=== PATIENT | female | born 1945 | race Caucasian/White ===

== ENCOUNTER 2017-09-06 17:20 | Emergency (ER) | payer MEDICARE ==
[2017-09-06 17:51] VITALS: BP 105/44
--- NOTE | 2017-09-06 18:30 | RAD ---
INDICATION: Left hand injury 3 days ago. Pain. COMPARISON: None TECHNIQUE: AP, lateral, and oblique views were obtained. FINDINGS: There is mild bony demineralization. There is moderate to advanced DIP and PIP osteoarthritis with narrowing, sclerosis, and hypertrophic bony change. There is minor osteoarthritis but the base of the thumb. There is no acute bony change. There is prominent soft tissue swelling over the dorsum of the hand IMPRESSION: MODERATE TO ADVANCED OSTEOARTHRITIS. DIFFUSE SOFT TISSUE SWELLING DORSUM OF HAND.
--- NOTE | 2017-09-06 18:31 | RAD ---
INDICATION: Left wrist pain COMPARISON: None TECHNIQUE: AP, lateral, and oblique views were obtained. FINDINGS: There is no acute bony change. There is mild osteoarthritis about the first CMC articulation. There is minor osteoarthritis about the radiocarpal joint. No additional findings IMPRESSION: MILD OSTEOARTHRITIC CHANGES.
--- NOTE | 2017-09-06 18:54 | UC ---
Nikolas Garcia Tecjoon, scribed for Sean Hodge MD on 09/06/17 at 1808 . Upper Extremity HPI - HPI Summary HPI Summary: This patient is a 72 year old female [place] 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 3 days ago. Patient states she was seen by her PCP that day and received an xray, which was negative for fracture. Patient states pain has persisted and is here for re-evaluation. Patients left wrist is swollen and with significant bruising. The pain is described as aching The pain is rated 6/10 in severity. Symptoms aggravated by movement. Symptoms alleviated by ice, inactivity. 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 - History of Current Complaint Chief Complaint: UCUpperExtremity Stated Complaint: WRIST INJURY Time Seen by Provider: 09/06/17 17:56 Hx Obtained From: Patient Onset/Duration: Sudden Onset, Lasting Days - 3, Still Present Severity Initially: Moderate Severity Currently: Moderate Pain Intensity: 6 Pain Scale Used: 0-10 Numeric Location Of Pain: Is Discrete @ - left wrist Character: Aching Aggravating Factor(s): Movement Alleviating Factor(s): Ice, Rest Associated Signs And Symptoms: Positive: Swelling, Bruising - Allergies/Home Medications Allergies/Adverse Reactions: Allergies Allergy/AdvReac Type Severity Reaction Status Date / Time Paroxetine [From Paxil] AdvReac cold/cough Verified 09/06/17 17:50 symptoms Home Medications: Home Medications Naproxen Sodium-Diphenhydramin [Aleve PM 220-25 mg] 2 tab PO PRN 09/06/17 [ History] PMH/Surg Hx/FS Hx/Imm Hx Previously Healthy: No Endocrine History: Diabetes Cardiovascular History: Hypertension, Other - hyperlipidemia Other Cardiovascular History: . Respiratory History: COPD - Surgical History Surgical History: Yes Surgery Procedure, Year, and Place: [place]/ lazy eye right as kid - Family History Known Family History: Positive: Hypertension, Diabetes - Social History Lives: With Family Alcohol Use: None Substance Use Type: None Smoking Status (MU): Heavy Every Day Tobacco Smoker Type: Cigarettes Amount Used/How Often: 1 1/2 ppd Length of Time of Smoking/Using Tobacco: 40+ years Have You Smoked in the Last Year: Yes - Immunization History Most Recent Influenza Vaccination: 2014 Most Recent Tetanus Shot: unk Most Recent Pneumonia Vaccination: few years ago Review of Systems Constitutional: Negative - fever Musculoskeletal: Other: - left wrist swelling and bruising, left wrist pain All Other Systems Reviewed And Are Negative: Yes Physical Exam Triage Information Reviewed: Yes Vital Signs: Initial Vital Signs Temp 99.8 F 09/06/17 17:41 Pulse 107 09/06/17 17:41 Resp 20 09/06/17 17:41 BP 105/44 09/06/17 17:41 Pulse Ox 90 09/06/17 17:41 - Additional Comments General: well-appearing, no pain distress Skin: warm, color reflects adequate perfusion, dry Head: normal Eyes: EOMI, RIGOBERTO ENT: normal Neck: supple, nontender Respiratory: CTA, breath sounds present Cardiovascular: RRR Abdomen: soft, nontender Bowel: present Extremities: Left hand swollen. Tender in distal radius and left metacarpal. Decreased ROM. Musculoskeletal: normal, strength/ROM intact Neurological: normal, sensory/motor intact, A&O x3 Psychological: affect/mood appropriate Diagnostics - Radiology Wrist XR Xray Interpretation: Positive (See Comments) - IMPRESSION: MILD OSTEOARTHRITIC CHANGES. physician has reviewed this radiology report. Radiology Interpretation Completed By: Radiologist Hand XR Xray Interpretation: Positive (See Comments) - IMPRESSION: MODERATE TO ADVANCED OSTEOARTHRITIS. DIFFUSE SOFT TISSUE SWELLING DORSUM OF HAND. physician has reviewed this radiology report. Radiology Interpretation Completed By: Radiologist Upper Extremity Course/Dx - Course Course Of Treatment: DISCUSSED RESULTS WITH PATIENT. - Differential Dx/Diagnosis Provider Diagnoses: LEFT WRIST AND HAND SPRAIN Discharge - Discharge Plan Condition: Stable Disposition: HOME Patient Education Materials: Wrist Injury (ED), Splint Care (ED), Hand Sprain ( ED) Referrals: Tia Henriquez MD [Primary Care Provider] - Additional Instructions: FOLLOW UP WITH YOUR DOCTOR. GET RECHECKED FOR ANY WORSENING OF YOUR CONDITION OR QUESTIONS OR CONCERNS. The documentation as recorded by the Nikolas bolivar Tecjoon accurately reflects the service I personally performed and the decisions made by me, Sena Hodge MD.
== END 2017-09-06 19:05 | disposition home or self-care (01) ==
LOC: UCEAST 17:20
DX: S63.92XA Sprain of unspecified part of left wrist and hand, initial encounter (principal); E11.9 Type 2 diabetes mellitus without complications; I10 Essential (primary) hypertension; M19.032 Primary osteoarthritis, left wrist; M19.042 Primary osteoarthritis, left hand; F17.210 Nicotine dependence, cigarettes, uncomplicated; Z88.8 Allergy status to other drugs, medicaments and biological substances; W19.XXXA Unspecified fall, initial encounter; Y92.9 Unspecified place or not applicable
CPT/HCPCS: 99213; G0463

== ENCOUNTER 2017-11-21 15:13 | Inpatient (IN) | payer MEDICARE ==
[2017-11-21 16:36] LABS: ABS Basophils 0 10^3/ul (0-0.2); ABS Eosinophils 0.1 10^3/ul (0-0.6); ABS Lymphocytes 0.9 10^3/ul (1.0-4.8); ABS Monocytes 0.5 10^3/ul (0-0.8); ABS Neutrophils 5.5 10^3/ul (1.5-7.7); ABS Nucleated RBC 0 10^3/ul; Eosinophil % 1.2 % (0-6); Hematocrit 45 % (35-47); Hemoglobin 15.2 g/dl (12.0-16.0); Mean Corpuscular HGB Conc 33 g/dl (31-36); Mean Corpuscular Hemoglobin 32 pg (27-31); Mean Corpuscular Volume 97 fL (80-97); Mean Platelet Volume 8.6 um3 (7.4-10.4); Nucleated Red Blood Cells % 0.1; Platelet Count 130 10^3/ul (150-450); Red Blood Count 4.68 10^6/ul (4.0-5.4); Red Cell Distribution Width 15 % (10.5-15); White Blood Count 7.1 10^3/ul (3.5-10.8)
[2017-11-21 16:46] LABS: INR 0.93 (0.77-1.02)
[2017-11-21] MEDS ORDERED: Albuterol/Ipratropium NEB.SOL* Albuterol 2.5 MG/Ipratropium 0.5 MG 3 ML INH ONE ×2 (16:49→18:01)
[2017-11-21 16:55] LABS: EGFR Non-African American 30.7 (>60)
--- NOTE | 2017-11-21 17:03 | RAD ---
INDICATION: Hypoxia COMPARISON: Most recent comparison chest x-ray is dated February 07, 2016 TECHNIQUE: Single AP portable view of the chest was obtained. FINDINGS: Image quality is compromised due to the relative inferiority of a portable chest x-ray. Similar the prior chest x-ray there is a mild degree of cardiomegaly. Faint calcification is seen overlying the arch of the aorta. The pulmonary vasculature is mildly engorged and indistinct. There is blunting of the left costophrenic angle. There is no lobar consolidation. Visualized bones are normal for the patient's age. IMPRESSION: In the correct clinical setting chest x-ray findings could be compatible with mild cardiogenic pulmonary edema similar in appearance to the prior chest x-ray.
[2017-11-21] MEDS ORDERED: methylPREDNISolone 125 MG* 2 ML VIAL IV ONE (17:50)
--- NOTE | 2017-11-21 18:40 | ED ---
Chente Garcia Stephanie, scribed for Sean Hodge MD on 11/21/17 at 1622 . Complex/Multi-Sys Presentation - HPI Summary HPI Summary: The pt is a 72 y/o F presenting to the ED with c/o weakness that began today at 08:00. The pt states she was standing when her legs came out from under her and she fell to the floor at 11:30 today. Symptoms include LE numbness bilaterally, tearing pain in her L leg, productive cough and increased tiredness. The pt denies CP and increased HR. She states her legs are not currently numb. Per daughter, the pt was dozing in and out of sleep throughout the day and fell asleep while on the toilet last night. - History Of Current Complaint Chief Complaint: EDWeakness Time Seen by Provider: 11/21/17 15:55 Hx Obtained From: Patient Onset/Duration: Gradual Onset, Lasting Days - 1, Still Present Timing: Constant Severity Currently: Mild Associated Signs And Symptoms: Positive: Weakness, Cough, Other - LE numbness, tearing pain over L LE, increased tiredness - Allergies/Home Medications Allergies/Adverse Reactions: Allergies Allergy/AdvReac Type Severity Reaction Status Date / Time paroxetine [From Paxil] Allergy Runny Nose Verified 11/21/17 15:22 Home Medications: Home Medications Atorvastatin* [Lipitor*] 20 mg PO DAILY 11/21/17 [History Confirmed 11/21/17] Insulin Aspart Prot/Insuln Asp [Novolog Mix 70/30 Prefill] 60 units SUBCUT BID AC 11/21/17 [History Confirmed 11/21/17] Lisinopril TAB* [Prinivil TAB*] 5 mg PO DAILY 11/21/17 [History Confirmed ] Pregabalin CAP(*) [Lyrica CAP(*)] 150 mg PO TID 11/21/17 [History Confirmed ] clonazePAM TAB(*) [KlonoPIN TAB(*)] 0.5 mg PO QID PRN 11/21/17 [History Confirmed 11/21/17] PMH/Surg Hx/FS Hx/Imm Hx Endocrine/Hematology History: Reports: Hx Diabetes Cardiovascular History: Reports: Hx Hypertension Respiratory History: Reports: Hx Chronic Obstructive Pulmonary Disease (COPD) - emphasema Comment Only: Other Respiratory Problems/Disorders - sob with exertion GI History: Reports: Other GI Disorders - stomach discomfort Musculoskeletal History: Reports: Other Musculoskeletal History - arthritis Sensory History: Reports: Hx Contacts or Glasses Opthamlomology History: Reports: Hx Contacts or Glasses Psychiatric History: Reports: Hx Anxiety - Cancer History Hx Chemotherapy: No Hx Radiation Therapy: No - Surgical History Surgery Procedure, Year, and Place: [place]/ lazy eye right as kid Infectious Disease History: No Infectious Disease History: Denies: Traveled Outside the [place] in Last 30 Days - Family History Known Family History: Positive: Hypertension, Diabetes - Social History Occupation: Retired Lives: Alone Alcohol Use: None Hx Substance Use: No Substance Use Type: Reports: None Hx Tobacco Use: Yes Smoking Status (MU): Heavy Every Day Tobacco Smoker Type: Cigarettes Amount Used/How Often: 1 1/2 ppd Length of Time of Smoking/Using Tobacco: 40+ years Have You Smoked in the Last Year: Yes Review of Systems Positive: Other - increased tiredness. Negative: Fever Positive: Other - Negative: increased HR. Negative: Chest Pain Positive: Cough Positive: Other - tearing pain in L LE Positive: Weakness, Numbness - bilateral LE All Other Systems Reviewed And Are Negative: Yes Physical Exam - Summary Physical Exam Summary: General: well-appearing, no pain distress Skin: warm, color reflects adequate perfusion, dry Head: normal Eyes: EOMI, RIGOBERTO ENT: normal Neck: supple, nontender Respiratory: CTA, breath sounds present, loose cough Cardiovascular: RRR Abdomen: soft, nontender Bowel: present Musculoskeletal: strength/ROM intact, bilateral pedal edema Neurological: normal, sensory/motor intact, A&O x3, no sensation or neurological deficits Psychological: affect/mood appropriate Triage Information Reviewed: Yes Vital Signs On Initial Exam: Initial Vitals Temp Pulse Resp BP Pulse Ox 96.8 F 80 20 120/75 89 11/21/17 15:17 11/21/17 15:17 11/21/17 15:17 11/21/17 15:17 11/21/17 15:17 Vital Signs Reviewed: Yes Diagnostics - Vital Signs Vital Signs Temp Pulse Resp BP Pulse Ox 11/21/17 15:17 96.8 F 80 20 120/75 89 - Laboratory Lab Results: Lab Results 11/21/17 11/21/17 11/21/17 Range/Units 16:23 16:23 16:23 WBC 7.1 (3.5-10.8) 10^3/ul RBC 4.68 (4.0-5.4) 10^6/ul Hgb 15.2 (12.0-16.0) g/dl Hct 45 (35-47) % MCV 97 (80-97) fL MCH 32 H (27-31) pg MCHC 33 (31-36) g/dl RDW 15 (10.5-15) % Plt Count 130 L (150-450) 10^3/ul MPV 8.6 (7.4-10.4) um3 Neut % (Auto) 77.9 (38-83) % Lymph % (Auto) 13.0 L (25-47) % Bureau % (Auto) 7.6 H (0-7) % Eos % (Auto) 1.2 (0-6) % Baso % (Auto) 0.3 (0-2) % Absolute Neuts (auto) 5.5 (1.5-7.7) 10^3/ul Absolute Lymphs (auto) 0.9 L (1.0-4.8) 10^3/ul Absolute Monos (auto) 0.5 (0-0.8) 10^3/ul Absolute Eos (auto) 0.1 (0-0.6) 10^3/ul Absolute Basos (auto) 0 (0-0.2) 10^3/ul Absolute Nucleated RBC 0 10^3/ul Nucleated RBC % 0.1 INR (Anticoag Therapy) 0.93 (0.77-1.02) APTT 30.4 (26.0-36.3) seconds D-Dimer, Quantitative 350 H (Less Than 230) ng/mL VBG pH (7.33-7.43) VBG pCO2 (41-51) mmHg VBG pO2 (35-45) mmHg VBG HCO3 (24-28) mmol/L VBG O2 Saturation (70-80) % VBG Base Excess (0-4) Sodium 142 (139-145) mmol/L Potassium 5.5 H (3.5-5.0) mmol/L Chloride 102 (101-111) mmol/L Carbon Dioxide 30 (22-32) mmol/L Anion Gap 10 (2-11) mmol/L BUN 33 H (6-24) mg/dL Creatinine 1.64 H (0.51-0.95) mg/dL Est GFR ( Amer) 39.5 (>60) Est GFR (Non-Af Amer) 30.7 (>60) BUN/Creatinine Ratio 20.1 H (8-20) Glucose 57 L (70-100) mg/dL POC Glucose (mg/dL) (70-100) mg/dL Lactic Acid (0.5-2.0) mmol/L Calcium 8.8 (8.6-10.3) mg/dL Magnesium 1.8 L (1.9-2.7) mg/dL Total Bilirubin 0.60 (0.2-1.0) mg/dL AST 14 (13-39) U/L ALT 10 (7-52) U/L Alkaline Phosphatase 91 (34-104) U/L Ammonia (16-53) mol/L Total Creatine Kinase 47 (10-223) U/L CK-MB (CK-2) 1.8 (0.6-6.3) ng/mL Troponin I 0.00 (<0.04) ng/mL C-Reactive Protein 2.11 (< 5.00) mg/L B-Natriuretic Peptide ( - 100) pg/mL Total Protein 7.4 (6.4-8.9) g/dL Albumin 4.0 (3.2-5.2) g/dL Globulin 3.4 (2-4) g/dL Albumin/Globulin Ratio 1.2 (1-3) Lipase 19 (11.0-82.0) U/L TSH 1.49 (0.34-5.60) mcIU/mL Salicylates < 2.50 (<30) mg/dL Acetaminophen < 15 mcg/mL Serum Alcohol < 10 (<10) mg/dL 11/21/17 11/21/17 11/21/17 Range/Units 16:23 16:23 16:23 WBC (3.5-10.8) 10^3/ul RBC (4.0-5.4) 10^6/ul Hgb (12.0-16.0) g/dl Hct (35-47) % MCV (80-97) fL MCH (27-31) pg MCHC (31-36) g/dl RDW (10.5-15) % Plt Count (150-450) 10^3/ul MPV (7.4-10.4) um3 Neut % (Auto) (38-83) % Lymph % (Auto) (25-47) % Bureau % (Auto) (0-7) % Eos % (Auto) (0-6) % Baso % (Auto) (0-2) % Absolute Neuts (auto) (1.5-7.7) 10^3/ul Absolute Lymphs (auto) (1.0-4.8) 10^3/ul Absolute Monos (auto) (0-0.8) 10^3/ul Absolute Eos (auto) (0-0.6) 10^3/ul Absolute Basos (auto) (0-0.2) 10^3/ul Absolute Nucleated RBC 10^3/ul Nucleated RBC % INR (Anticoag Therapy) (0.77-1.02) APTT (26.0-36.3) seconds D-Dimer, Quantitative (Less Than 230) ng/mL VBG pH 7.30 L (7.33-7.43) VBG pCO2 70 H (41-51) mmHg VBG pO2 21 L (35-45) mmHg VBG HCO3 27.3 (24-28) mmol/L VBG O2 Saturation 41.8 L (70-80) % VBG Base Excess 5.3 H (0-4) Sodium (139-145) mmol/L Potassium (3.5-5.0) mmol/L Chloride (101-111) mmol/L Carbon Dioxide (22-32) mmol/L Anion Gap (2-11) mmol/L BUN (6-24) mg/dL Creatinine (0.51-0.95) mg/dL Est GFR ( Amer) (>60) Est GFR (Non-Af Amer) (>60) BUN/Creatinine Ratio (8-20) Glucose (70-100) mg/dL POC Glucose (mg/dL) (70-100) mg/dL Lactic Acid 1.3 (0.5-2.0) mmol/L Calcium (8.6-10.3) mg/dL Magnesium (1.9-2.7) mg/dL Total Bilirubin (0.2-1.0) mg/dL AST (13-39) U/L ALT (7-52) U/L Alkaline Phosphatase (34-104) U/L Ammonia 31 (16-53) mol/L Total Creatine Kinase (10-223) U/L CK-MB (CK-2) (0.6-6.3) ng/mL Troponin I (<0.04) ng/mL C-Reactive Protein (< 5.00) mg/L B-Natriuretic Peptide 16 ( - 100) pg/mL Total Protein (6.4-8.9) g/dL Albumin (3.2-5.2) g/dL Globulin (2-4) g/dL Albumin/Globulin Ratio (1-3) Lipase (11.0-82.0) U/L TSH (0.34-5.60) mcIU/mL Salicylates (<30) mg/dL Acetaminophen mcg/mL Serum Alcohol (<10) mg/dL 11/21/17 Range/Units 17:48 WBC (3.5-10.8) 10^3/ul RBC (4.0-5.4) 10^6/ul Hgb (12.0-16.0) g/dl Hct (35-47) % MCV (80-97) fL MCH (27-31) pg MCHC (31-36) g/dl RDW (10.5-15) % Plt Count (150-450) 10^3/ul MPV (7.4-10.4) um3 Neut % (Auto) (38-83) % Lymph % (Auto) (25-47) % Bureau % (Auto) (0-7) % Eos % (Auto) (0-6) % Baso % (Auto) (0-2) % Absolute Neuts (auto) (1.5-7.7) 10^3/ul Absolute Lymphs (auto) (1.0-4.8) 10^3/ul Absolute Monos (auto) (0-0.8) 10^3/ul Absolute Eos (auto) (0-0.6) 10^3/ul Absolute Basos (auto) (0-0.2) 10^3/ul Absolute Nucleated RBC 10^3/ul Nucleated RBC % INR (Anticoag Therapy) (0.77-1.02) APTT (26.0-36.3) seconds D-Dimer, Quantitative (Less Than 230) ng/mL VBG pH (7.33-7.43) VBG pCO2 (41-51) mmHg VBG pO2 (35-45) mmHg VBG HCO3 (24-28) mmol/L VBG O2 Saturation (70-80) % VBG Base Excess (0-4) Sodium (139-145) mmol/L Potassium (3.5-5.0) mmol/L Chloride (101-111) mmol/L Carbon Dioxide (22-32) mmol/L Anion Gap (2-11) mmol/L BUN (6-24) mg/dL Creatinine (0.51-0.95) mg/dL Est GFR ( Amer) (>60) Est GFR (Non-Af Amer) (>60) BUN/Creatinine Ratio (8-20) Glucose (70-100) mg/dL POC Glucose (mg/dL) 125 H (70-100) mg/dL Lactic Acid (0.5-2.0) mmol/L Calcium (8.6-10.3) mg/dL Magnesium (1.9-2.7) mg/dL Total Bilirubin (0.2-1.0) mg/dL AST (13-39) U/L ALT (7-52) U/L Alkaline Phosphatase (34-104) U/L Ammonia (16-53) mol/L Total Creatine Kinase (10-223) U/L CK-MB (CK-2) (0.6-6.3) ng/mL Troponin I (<0.04) ng/mL C-Reactive Protein (< 5.00) mg/L B-Natriuretic Peptide ( - 100) pg/mL Total Protein (6.4-8.9) g/dL Albumin (3.2-5.2) g/dL Globulin (2-4) g/dL Albumin/Globulin Ratio (1-3) Lipase (11.0-82.0) U/L TSH (0.34-5.60) mcIU/mL Salicylates (<30) mg/dL Acetaminophen mcg/mL Serum Alcohol (<10) mg/dL Result Diagrams: 11/21/17 16:23 11/21/17 16:23 Lab Statement: Any lab studies that have been ordered have been reviewed, and results considered in the medical decision making process. - Radiology CXR Xray Interpretation: Positive (See Comments) Radiology Interpretation Completed By: Radiologist - In the correct clinical setting chest x-ray findings could be compatible with mild cardiogenic pulmonary edema similar in appearance to the prior chest x-ray. ED physician has reviewed this report. - EKG 16:28 Cardiac Rate: NL EKG Rhythm: Sinus Rhythm - [address] Segment: Normal Ectopy: None Re-Evaluation - Re-Evaluation First Eval Re-Evaluation Time: 18:01 Change: Unchanged - The pt is still mildly SOB. ED physician discussed plans of admission with the pt. The pt understands and agrees with the plan of admission. Complex Multi-Symp Course/Dx Course Of Treatment: DISCUSSED RESULTS WITH PATIENT AND FAMILY. ADMIT HOSPITALIST. CRITICAL CARE TIME LESS THAN 30 MINUTES. - Diagnoses Provider Diagnoses: Weakness, Hypoxia - Physician Notifications Discussed Care Of Patient With: Nils Staton Time Discussed With Above Provider: 17:46 Instructed by Provider To: Admit As Inpatient Discharge - Sign-Out/Discharge Documenting (check all that apply): Discharge - Discharge Plan Condition: Stable Disposition: HOME Referrals: Tia Henriquez MD [Primary Care Provider] - - Billing Disposition and Condition Condition: STABLE Disposition: HOME The documentation as recorded by the Chente bolivar Stephanie accurately reflects the service I personally performed and the decisions made by me, Sean Hodge MD.
[2017-11-21] MEDS ORDERED: Dextrose 50% Syringe 50 ML* 25 GM/50 ML SYRINGE IV PUSH PRN (18:48)
[2017-11-21] MEDS ORDERED: Albuterol/Ipratropium NEB.SOL* Albuterol 2.5 MG/Ipratropium 0.5 MG 3 ML INH PRN (18:50)
[2017-11-21] MEDS ORDERED: Magnesium Sulfate 2 GM IV* 2 GM/50 ML BAG IVPB ONE (18:54)
[2017-11-21] MEDS ORDERED: Sodium Polystyrene ORAL.SOL* 15 GM/60 ML BTL PO ONE (18:55)
[2017-11-21] MEDS ORDERED: Spiriva Inhaler DEVICE* 1 EACH DEVICE INH ONE (19:00)
[2017-11-21] MEDS ORDERED: cefTRIAXone(*) 1 GM in NS 0.9% 50 ML* 50 ML IVPB SCH (19:02)
[2017-11-21] MEDS: Mometasone/Formoter 200/5 MDI INH SCH (19:19)
[2017-11-21] MEDS: Albuterol/Ipratropium NEB.SOL* Albuterol 2.5 MG/Ipratropium 0.5 MG 3 ML INH SCH (19:19)
[2017-11-21] MEDS: Tiotropium CAP.INH* CAP.INH/18 MCG (USE ORDER SET !) INH SCH (19:20)
--- NOTE | 2017-11-21 19:48 | RAD ---
HISTORY: Bilateral pedal edema with a positive d-dimer TECHNIQUE: Multiple transverse and longitudinal ultrasound images were obtained of the veins of the bilateral lower extremities using grayscale, color Doppler, and spectral Doppler imaging with and without compression and with augmentation. FINDINGS: VEINS: The common femoral vein, deep femoral vein, femoral vein and popliteal vein are compressible throughout their course, with normal flow on color Doppler imaging and normal response to augmentation on spectral Doppler imaging. SOFT TISSUES: Grossly normal. No large popliteal fossa cyst was identified. IMPRESSION: No sonographic evidence of deep vein thrombosis.
[2017-11-21 20:42] LABS: Urine Appearance Cloudy; Urine Blood Negative (Negative); Urine Color Yellow; Urine Ketones Negative (Negative); Urine Protein Negative (Negative); Urine Specific Gravity 1.012 (1.010-1.030); Urine Urobilinogen Negative (Negative)
[2017-11-21] MEDS: Atorvastatin* 20 MG TAB PO SCH (21:45)
[2017-11-21] MEDS: Insulin LISPRO* 1 UNITS UNIT SUBCUT SCH (21:45)
[2017-11-21] MEDS: Heparin VIAL(*) 5000 UNITS/ML VIAL (FIVE THOUSAND) SUBCUT SCH (21:48)
[2017-11-21] MEDS: cefTRIAXone 1000 MG SYRINGE IVPB Q24H (in NaCl) IVPB SCH ×2 (21:51)
[2017-11-22] MEDS: Albuterol/Ipratropium NEB.SOL* Albuterol 2.5 MG/Ipratropium 0.5 MG 3 ML INH SCH ×4 (00:41→20:28)
[2017-11-22] MEDS: Nystatin TOP POWDER* 15 GM BTL TOPICAL SCH ×4 (01:17→20:48)
--- NOTE | 2017-11-22 03:19 | HP ---
HISTORY AND PHYSICAL: DATE OF ADMISSION: 11/21/17 ADMITTING PROVIDER: Nils Staton MD PRIMARY CARE PROVIDER: Tia Henriquez MD CHIEF COMPLAINT: Fall out of chair, altered mental status, hypoxia. HISTORY OF PRESENT ILLNESS: Sabine Mullins is a 72-year-old female with past medical history of COPD, JOSEPH, likely obesity-hypoventilation syndrome, only intermittently compliant with her supplemental oxygen at home and refusing to use her prescribed inhalers, previously as she did not feel they were of benefit. She is still a current smoker. Additional past medical history includes hypertension, hyperlipidemia, spinal stenosis, anxiety/depression, GERD , and insomnia. The patient was in her usual state of health until the morning of admission when her [id number] was visiting her (Sheree) and felt like the patient was falling asleep more often. Sabine eventually refused Sheree's suggestions for medical evaluation and told her to leave the premises. She around lunch time had a sensation of feeling fuzzy or unclear and the next thing she knows she was slipping out of her chair. She denies any head trauma. She could not get up back to a standing position, eventually pushed her life alert button, who contacted her daughter and medical surrogate, Nhi Burroughs who later called EMS. EMS evaluated the patient, found saturations of 78%. The patient refused ambulance transport, but was transported by daughter Nhi to the emergency room. Initial workup was concerning for elevated creatinine from prior baseline 1.64 from 1.13 back in 2016, hyperkalemia of 5.5, some hypoxia and hypercarbia on VBG. She had a mildly elevated D-dimer at 350. She was presented to the hospitalist service for acute on chronic hypoxic respiratory failure. The patient denies fevers or chills or chest tightness or pressure. She has a chronic cough, which was slightly worse than usual, seemingly a little bit junky, but she is unable to actually expectorate anything and has to swallow. The patient said she does not usually wear her oxygen in fact only when her [id number] Sheree visits on Tuesdays and that she put it on , this is because she is a current one and a half day smoker. Sheree usually notes that her oxygen levels around 83% when she is off the oxygen. The patient attests to some mild abdominal pain that is chronic, comes and goes and now resolved. Denies any nausea or vomiting, diarrhea or constipation, headaches, muscle aches, night sweats. PAST MEDICAL HISTORY: Includes: 1. Insulin-dependent type 2 diabetes. 2. Hypertension. 3. Hyperlipidemia. 4. COPD, oxygen-dependent, but not compliant. 5. Obstructive sleep apnea, although did not complete entire sleep study as an outpatient and has never prescribed CPAP or BiPAP. 6. Likely obesity-hypoventilation syndrome. 7. Spinal stenosis. 8. Depression. 9. Anxiety. 10. GERD. 11. Chronic bilateral lower extremity edema. 12. Insomnia. HOME MEDICATIONS: Include: 1. Metformin 1000 mg p.o. b.i.d. 2. Insulin aspart protamine/insulin aspart 70/30 mix, 60 units b.i.d. 3. Lyrica 150 mg p.o. t.i.d. 4. Atorvastatin 20 mg p.o. daily. 5. Lisinopril 5 mg p.o. daily. 6. Klonopin 0.5 mg p.o. q.6 hours p.r.n., but for which she is actually taking twice a day at breakfast and dinner almost everyday. ALLERGIES: Include PAROXETINE, which produces runny nose. FAMILY HISTORY: Father of CVA, age 76. Mother of pancreatic cancer, age 83. Brother had CVA and another brother had unknown type of cancer. SOCIAL HISTORY: The patient has smoked at least 40 plus years, currently one and a half packs a day. Never significant alcohol use or other drug use. Surrogate is her daughter, Nhi Burroughs. The patient currently lives alone and values her independence, would likely refuse alternative living situation. REVIEW OF SYSTEMS: A complete 14-point review of systems is negative except as per HPI. PHYSICAL EXAMINATION GENERAL APPEARANCE: No acute distress, chronically ill-appearing with OxyMask on round face and occasionally nodding off. VITAL SIGNS: Temperature 96.8, heart rate 89, respiratory rate 23, oxygen saturation on admission 89% on 2 L nasal cannula, blood pressure 120/75. HEENT: Normocephalic, atraumatic. Pupils are equal, round, and reactive to light. Extraocular motions intact. No scleral icterus. NECK: Supple. No cervical lymphadenopathy. PULMONARY: Distant lung sounds with slight expiratory wheezing. No rales or rhonchi. CARDIOVASCULAR: Regular rate and rhythm. No murmurs, rubs, or gallops. ABDOMEN: Morbidly obese, soft, nontender, nondistended. No peritoneal signs. No guarding. EXTREMITIES: With chronic venous stasis changes bilaterally with woody nonpitting edema. NEUROLOGIC: Moving all extremities. Cranial nerves II through XII intact. SKIN: No lesions, no rashes. LABORATORY DATA: White count 7.1, hemoglobin 15.2, hematocrit 45, platelets 130. D-dimer is 350. VBG 7.3, pCO2 70, pO2 21, bicarbonate 27.3. Sodium 142, potassium 5.5, chloride 102, carbon dioxide 30, BUN 33, creatinine 1.64, glucose 57, lactic acid 1.3, magnesium 1.8. Total bilirubin 0.6, AST 14, ALT 10 , alkaline phosphatase 91, ammonia 31. Troponin 0.00. CRP 2.1. BNP 16. Lipase 19. Salicylate less than 2.5, acetaminophen less than 15, alcohol less than 10. IMAGING: Chest x-ray, impression: In the correct clinical setting, chest x-ray /findings could be compatible with mild cardiogenic pulmonary edema in appearance to the prior chest x-ray, there is blunting of the left costophrenic angle, no lobar consolidation, pulmonary vasculature is mildly engorged and indistinct. EKG demonstrated T-wave inversions in V1, V3 and Q-waves in 3 and aVF, these were all chronic. The patient is in normal sinus rhythm, heart rate 71, OH 199 , QTc 438, left axis deviation, poor R-wave progression. ASSESSMENT AND PLAN: Sabine Mullins is a 72-year-old female with past medical history most significant for chronic obstructive pulmonary disease, obstructive sleep apnea likely obesity-hypoventilation syndrome, presenting with acute on chronic hypoxic respiratory failure and increased lethargy with concern for hypercarbic respiratory failure. The patient had a mildly elevated D-dimer at 350. She also complained of some discomfort in her left calf, which seems to be new today. We need to get bilateral venous duplex ultrasounds of the lower extremity to rule out DVT, get a V/Q scan in the morning, but she cannot get a CTA given her GFR of 30 and creatinine of 1.64, which seemed to be elevated from her baseline, but last labs were in 2016, adding on studies to calculate FENa and FEurea with urine sodium, urine creatinine, urine BUN. The patient is a poor historian in terms of her diuretics. There was non-listed on outpatient pharmacy records and she cannot tell anymore. BNP is only 16. Chest x-ray showed concern for mild pulmonary congestion. The BNP could be slightly falls negative given the setting of morbid obesity. Hold off on any fluids or diuretics for now. For suspected chronic obstructive pulmonary disease exacerbation, she is status post Solu-Medrol 125 mg in the ED, we will continue 40 q.8 for now with taper. We can start her on inhalers including Dulera, Spiriva, and albuterol/ipratropium q.6 hours scheduling and q.2 hours p.r.n. Started on ceftriaxone. Get a sputum culture if able. For her insulin- dependent diabetes mellitus, she is although unclear on her insulin dosing, system says 60 units b.i.d. of 70/30; however, she was hypoglycemic to 57 on initial BNP. We will put her on a high dose sliding scale insulin q.a.c./q.h.s. , start Lantus 20 units in the morning and titrate accordingly. We will continue lisinopril 5 mg p.o. tomorrow morning. Via DVT risk assessment, she is at highest risk. We will start heparin 5000 units q.8 hours and as mentioned followup with V/Q scan tomorrow morning and the duplex Dopplers. She is a DNR/DNI, her MOLST paperwork filled out tomorrow. Her medical surrogate is her daughter, Nhi Burroughs. She is being admitted to inpatient status for acute on chronic hypoxic respiratory failure and altered mental status. [id number]/[facility] #: [id number] [facility]ITAL[facility]
[2017-11-22] MEDS: Heparin VIAL(*) 5000 UNITS/ML VIAL (FIVE THOUSAND) SUBCUT SCH ×3 (06:30→20:48)
[2017-11-22 06:33] LABS: ABS Basophils 0 10^3/ul (0-0.2); ABS Eosinophils 0 10^3/ul (0-0.6); ABS Lymphocytes 0.4 10^3/ul (1.0-4.8); ABS Monocytes 0.1 10^3/ul (0-0.8); ABS Neutrophils 5.2 10^3/ul (1.5-7.7); ABS Nucleated RBC 0 10^3/ul; Eosinophil % 0 % (0-6); Hematocrit 43 % (35-47); Hemoglobin 14.6 g/dl (12.0-16.0); Lymphocyte % 7.6 % (25-47); Mean Corpuscular HGB Conc 34 g/dl (31-36); Mean Corpuscular Hemoglobin 33 pg (27-31); Mean Corpuscular Volume 96 fL (80-97); Mean Platelet Volume 8.6 um3 (7.4-10.4); Nucleated Red Blood Cells % 0.1; Platelet Count 139 10^3/ul (150-450); Red Cell Distribution Width 15 % (10.5-15); White Blood Count 5.7 10^3/ul (3.5-10.8)
[2017-11-22 06:55] LABS: EGFR Non-African American 33.3 (>60)
[2017-11-22] MEDS: Tiotropium CAP.INH* CAP.INH/18 MCG (USE ORDER SET !) INH SCH (07:26)
[2017-11-22] MEDS: Mometasone/Formoter 200/5 MDI INH SCH ×2 (07:27→20:29)
[2017-11-22] MEDS ORDERED: Sodium Polystyrene ORAL.SOL* 15 GM/60 ML BTL PO ONE (07:38)
[2017-11-22] MEDS ORDERED: Insulin GLARGINE(*) 1 UNITS UNIT SUBCUT SCH ×2 (08:00→20:00)
[2017-11-22] MEDS: Atorvastatin* 20 MG TAB PO SCH (09:09)
[2017-11-22] MEDS: Lisinopril TAB* 5 MG PO SCH (09:09)
[2017-11-22] MEDS: Torsemide TAB* 20 MG PO SCH (09:09)
[2017-11-22] MEDS: Insulin LISPRO* 1 UNITS UNIT SUBCUT SCH ×4 (09:11→20:46)
[2017-11-22] MEDS: methylPREDNISolone SOD 40 MG* 1 ML VIAL IV SCH ×3 (09:20→23:12)
[2017-11-22 16:14] LABS: EGFR Non-African American 30.1 (>60)
--- NOTE | 2017-11-22 18:39 | PN ---
Subjective Date of Service: 11/22/17 Interval History: hyperkalemia to 6.0, improved on afternoon recheck after kayexalate. 5L Satting 94% updated Sister Masha and [id number] who don't think patient is back to her baseline. negative duplex dopplers yesterday. denies pain, chest pressure. feels like sputum is loosening up. Objective Active Medications: Albuterol/Ipratropium (Duoneb (Albuterol 2.5 Mg/Ipratropium 0.5 Mg)) 1 neb INH Q2H PRN PRN Reason: SOB/WHEEZING Albuterol/Ipratropium (Duoneb (Albuterol 2.5 Mg/Ipratropium 0.5 Mg)) 1 neb INH [id number] AWAKE [facility] Last Admin: 11/22/17 12:48 Dose: 1 neb Atorvastatin Calcium (Lipitor*) 20 mg PO DAILY [facility] Last Admin: 11/22/17 09:09 Dose: 20 mg Dextrose (D50w Syringe 50 Ml*) 12.5 gm IV PUSH .FOR FS < 60 - SS PRN PRN Reason: FS < 60 Heparin Sodium (Porcine) (Heparin Vial(*)) 5,000 units SUBCUT Q8HR [facility] Last Admin: 11/22/17 12:58 Dose: 5,000 units Ceftriaxone Sodium 1,000 mg/ (Sodium Chloride) 10 mls @ 40 mls/hr IVPB Q24H [facility] Last Admin: 11/21/17 21:51 Dose: 40 mls/hr Insulin Glargine (Lantus(*)) 20 units SUBCUT Q12H [facility] Insulin Human Lispro (Humalog*) 0 units SUBCUT ACHS [facility] PRN Reason: Protocol Last Admin: 11/22/17 17:52 Dose: 12 units Lisinopril (Prinivil Tab*) 5 mg PO DAILY [facility] Last Admin: 11/22/17 09:09 Dose: 5 mg Methylprednisolone Sodium Succinate (Solu-Medrol 40 Mg) 40 mg IV Q8H [facility] Last Admin: 11/22/17 16:00 Dose: 40 mg Mometasone Furoate/Formoterol Fumar (Dulera 200/5 Mdi*) 2 puff INH BID [facility] Last Admin: 11/22/17 07:27 Dose: 2 puff Nystatin (Nystatin Top Powder*) 1 applic TOPICAL TID [facility] Last Admin: 11/22/17 16:05 Dose: 1 applic Tiotropium [place] (Spiriva Cap.Inh*) 1 cap INH DAILY [facility] Last Admin: 11/22/17 07:26 Dose: 1 cap Torsemide (Demadex*) 40 mg PO DAILY [facility] Last Admin: 11/22/17 09:09 Dose: 40 mg Vital Signs - 8 hr 11/22/17 11/22/17 11/22/17 11:39 12:51 15:39 Temperature 97.6 F 98.4 F Pulse Rate 71 86 88 Respiratory 18 18 20 Rate Blood Pressure 92/70 118/50 (mmHg) O2 Sat by Pulse 92 90 94 Oximetry Oxygen Devices in Use Now: Nasal Cannula, High Flow Nasal Cannula Appearance: NAD. chronically ill appearing. morbidly obese. Ears/Nose/Mouth/Throat: NL Teeth, Lips, Gums, Mucous Membranes Moist Neck: NL Appearance and Movements; NL JVP Respiratory: Symmetrical Chest Expansion and Respiratory Effort, - - distant lung sounds. no wheezing or rhonchi. Cardiovascular: NL Sounds; No Murmurs; No JVD Abdominal: NL Sounds; No Tenderness; No Distention, No Hepatosplenomegaly, - - obese Extremities: - - woody nonpitting edema. Skin: No Rash or Ulcers Neurological: Alert and Oriented x 3, NL Sensation, NL Muscle Strength and Tone Result Diagrams: 11/22/17 06:21 11/22/17 15:37 Additional Lab and Data: Laboratory Results - last 24 hr 11/22/17 11/22/17 11/22/17 06:21 06:21 07:25 WBC 5.7 RBC 4.50 Hgb 14.6 Hct 43 MCV 96 MCH 33 H MCHC 34 RDW 15 Plt Count 139 L MPV 8.6 Neut % (Auto) 90.4 H Lymph % (Auto) 7.6 L [place] % (Auto) 1.6 Eos % (Auto) 0 Baso % (Auto) 0.4 Absolute Neuts (auto) 5.2 Absolute Lymphs (auto) 0.4 L Absolute Monos (auto) 0.1 Absolute Eos (auto) 0 Absolute Basos (auto) 0 Absolute Nucleated RBC 0 Nucleated RBC % 0.1 Sodium 141 Potassium 6.0 H Chloride 106 Carbon Dioxide 28 Anion Gap 7 BUN 32 H Creatinine 1.53 H Est GFR ( Amer) 42.8 Est GFR (Non-Af Amer) 33.3 BUN/Creatinine Ratio 20.9 H Glucose 203 H POC Glucose (mg/dL) 204 H Calcium 8.5 L Magnesium 2.5 11/22/17 11/22/17 11/22/17 11:35 15:37 17:01 WBC RBC Hgb Hct MCV MCH MCHC RDW Plt Count MPV Neut % (Auto) Lymph % (Auto) [place] % (Auto) Eos % (Auto) Baso % (Auto) Absolute Neuts (auto) Absolute Lymphs (auto) Absolute Monos (auto) Absolute Eos (auto) Absolute Basos (auto) Absolute Nucleated RBC Nucleated RBC % Sodium 138 L Potassium 5.2 H Chloride 99 L Carbon Dioxide 31 Anion Gap 8 BUN 37 H Creatinine 1.67 H Est GFR ( Amer) 38.7 Est GFR (Non-Af Amer) 30.1 BUN/Creatinine Ratio 22.2 H Glucose 343 H POC Glucose (mg/dL) 220 H 322 H Calcium 8.5 L Magnesium 11/22/17 20:37 WBC RBC Hgb Hct MCV MCH MCHC RDW Plt Count MPV Neut % (Auto) Lymph % (Auto) [place] % (Auto) Eos % (Auto) Baso % (Auto) Absolute Neuts (auto) Absolute Lymphs (auto) Absolute Monos (auto) Absolute Eos (auto) Absolute Basos (auto) Absolute Nucleated RBC Nucleated RBC % Sodium Potassium Chloride Carbon Dioxide Anion Gap BUN Creatinine Est GFR ( Amer) Est GFR (Non-Af Amer) BUN/Creatinine Ratio Glucose POC Glucose (mg/dL) 341 H Calcium Magnesium Assess/Plan/Problems-Billing Assessment: 72 yo female PMH COPD noncompliant w/ home O2, doesn't use inhalers, current 1.5 ppd smoker, likely JOSEPH and OHS, morbid obesity presenting with acute on chronic hypoxic respiratory failure. likely COPD exacerbation. #COPD - solumedrol 40mg q8, taper - dulera, spiriva, duonebs - cftx - f/u sputum cx if able to produce - if altered mental status then get stat ABG to rule out hypercapnic respiratory failure. - goal sat 88-92%, avoid over oxygenation that might reduce respiratory drive. #calf pain - duplex w/o e/o DVT #?CHF - pt thinks she is on torsemide but does not know dose - CXR with e/o of volume overload; woody nonpitting extremities - torsemide 40mg daily - daily weights, strict io - no recent ECHO. #IDDM - increase to 30UBID, give additional 15+already given 20U tonight - high dose SSI #CKD - Ulytes suggest pre-renal . CODE: DNR/DNI heart healty diet dvt ppx: heparin dispo: medicine inpatient
[2017-11-22] MEDS: cefTRIAXone 1000 MG SYRINGE IVPB Q24H (in NaCl) IVPB SCH ×2 (20:28)
[2017-11-22] MEDS ORDERED: Insulin GLARGINE(*) 1 UNITS UNIT SUBCUT ONE (21:45)
[2017-11-23] MEDS: Albuterol/Ipratropium NEB.SOL* Albuterol 2.5 MG/Ipratropium 0.5 MG 3 ML INH SCH ×4 (01:08→19:29)
[2017-11-23 06:11] LABS: ABS Basophils 0 10^3/ul (0-0.2); ABS Eosinophils 0 10^3/ul (0-0.6); ABS Lymphocytes 0.6 10^3/ul (1.0-4.8); ABS Monocytes 0.5 10^3/ul (0-0.8); ABS Neutrophils 8.5 10^3/ul (1.5-7.7); ABS Nucleated RBC 0 10^3/ul; Eosinophil % 0 % (0-6); Hematocrit 44 % (35-47); Hemoglobin 14.4 g/dl (12.0-16.0); Lymphocyte % 6.2 % (25-47); Mean Corpuscular HGB Conc 33 g/dl (31-36); Mean Corpuscular Hemoglobin 32 pg (27-31); Mean Corpuscular Volume 97 fL (80-97); Mean Platelet Volume 8.7 um3 (7.4-10.4); Nucleated Red Blood Cells % 0; Platelet Count 131 10^3/ul (150-450); Red Blood Count 4.55 10^6/ul (4.0-5.4); Red Cell Distribution Width 15 % (10.5-15); White Blood Count 9.6 10^3/ul (3.5-10.8)
[2017-11-23] MEDS: Heparin VIAL(*) 5000 UNITS/ML VIAL (FIVE THOUSAND) SUBCUT SCH ×3 (06:19→21:53)
[2017-11-23 07:21] LABS: EGFR Non-African American 27.8 (>60)
[2017-11-23] MEDS: Tiotropium CAP.INH* CAP.INH/18 MCG (USE ORDER SET !) INH SCH (08:08)
[2017-11-23] MEDS: Mometasone/Formoter 200/5 MDI INH SCH ×2 (08:08→19:29)
--- NOTE | 2017-11-23 09:14 | PN ---
Subjective Date of Service: 11/23/17 Interval History: feels better Sat 89-90% on 5L this AM. slight MOON BG poorly controlled. MOLST updated: DNR/DNI Objective Active Medications: Albuterol/Ipratropium (Duoneb (Albuterol 2.5 Mg/Ipratropium 0.5 Mg)) 1 neb INH Q2H PRN PRN Reason: SOB/WHEEZING Albuterol/Ipratropium (Duoneb (Albuterol 2.5 Mg/Ipratropium 0.5 Mg)) 1 neb INH [id number] AWAKE [facility] Last Admin: 11/23/17 08:04 Dose: 1 neb Atorvastatin Calcium (Lipitor*) 20 mg PO DAILY [facility] Last Admin: 11/22/17 09:09 Dose: 20 mg Dextrose (D50w Syringe 50 Ml*) 12.5 gm IV PUSH .FOR FS < 60 - SS PRN PRN Reason: FS < 60 Heparin Sodium (Porcine) (Heparin Vial(*)) 5,000 units SUBCUT Q8HR [facility] Last Admin: 11/23/17 06:19 Dose: 5,000 units Ceftriaxone Sodium 1,000 mg/ (Sodium Chloride) 10 mls @ 40 mls/hr IVPB Q24H [facility] Last Admin: 11/22/17 20:28 Dose: 40 mls/hr Insulin Glargine (Lantus(*)) 30 units SUBCUT Q12H [facility] Insulin Human Lispro (Humalog*) 0 units SUBCUT ACHS [facility] PRN Reason: Protocol Last Admin: 11/22/17 20:46 Dose: 12 units Lisinopril (Prinivil Tab*) 5 mg PO DAILY [facility] Last Admin: 11/22/17 09:09 Dose: 5 mg Methylprednisolone Sodium Succinate (Solu-Medrol 40 Mg) 40 mg IV Q8H [facility] Last Admin: 11/22/17 23:12 Dose: 40 mg Mometasone Furoate/Formoterol Fumar (Dulera 200/5 Mdi*) 2 puff INH BID [facility] Last Admin: 11/23/17 08:08 Dose: 2 puff Nystatin (Nystatin Top Powder*) 1 applic TOPICAL TID [facility] Last Admin: 11/22/17 20:48 Dose: 1 applic Tiotropium [place] (Spiriva Cap.Inh*) 1 cap INH DAILY [facility] Last Admin: 11/23/17 08:08 Dose: 1 cap Torsemide (Demadex*) 40 mg PO DAILY [facility] Last Admin: 11/22/17 09:09 Dose: 40 mg Vital Signs - 8 hr 11/23/17 11/23/17 03:21 07:35 Temperature 97.5 F 98.6 F Pulse Rate 61 71 Respiratory 18 18 Rate Blood Pressure 154/85 146/81 (mmHg) O2 Sat by Pulse 92 95 Oximetry Oxygen Devices in Use Now: High Flow Nasal Cannula, OxyMask Appearance: NAD, sharper mentation this AM. Ears/Nose/Mouth/Throat: NL Teeth, Lips, Gums Neck: NL Appearance and Movements; NL JVP Respiratory: Symmetrical Chest Expansion and Respiratory Effort, - - coughing with deep breaths. no wheezing or rales. Cardiovascular: NL Sounds; No Murmurs; No JVD, RRR Abdominal: NL Sounds; No Tenderness; No Distention, No Hepatosplenomegaly, - - morbidly obese. Extremities: No Edema Skin: No Rash or Ulcers Neurological: Alert and Oriented x 3, NL Sensation, NL Muscle Strength and Tone Nutrition: Taking PO's Result Diagrams: 11/23/17 05:41 11/23/17 05:41 Additional Lab and Data: Laboratory Results - last 24 hr 11/23/17 11/23/17 11/23/17 05:41 05:41 07:34 WBC 9.6 RBC 4.55 Hgb 14.4 Hct 44 MCV 97 MCH 32 H MCHC 33 RDW 15 Plt Count 131 L MPV 8.7 Neut % (Auto) 88.5 H Lymph % (Auto) 6.2 L [place] % (Auto) 5.1 Eos % (Auto) 0 Baso % (Auto) 0.2 Absolute Neuts (auto) 8.5 H Absolute Lymphs (auto) 0.6 L Absolute Monos (auto) 0.5 Absolute Eos (auto) 0 Absolute Basos (auto) 0 Absolute Nucleated RBC 0 Nucleated RBC % 0 Sodium 139 Potassium 5.0 Chloride 101 Carbon Dioxide 28 Anion Gap 10 BUN 43 H Creatinine 1.79 H Est GFR ( Amer) 35.7 Est GFR (Non-Af Amer) 27.8 BUN/Creatinine Ratio 24.0 H Glucose 205 H POC Glucose (mg/dL) 209 H Calcium 8.6 Magnesium 2.3 11/23/17 11/23/17 11/23/17 11:58 16:19 20:22 WBC RBC Hgb Hct MCV MCH MCHC RDW Plt Count MPV Neut % (Auto) Lymph % (Auto) [place] % (Auto) Eos % (Auto) Baso % (Auto) Absolute Neuts (auto) Absolute Lymphs (auto) Absolute Monos (auto) Absolute Eos (auto) Absolute Basos (auto) Absolute Nucleated RBC Nucleated RBC % Sodium Potassium Chloride Carbon Dioxide Anion Gap BUN Creatinine Est GFR ( Amer) Est GFR (Non-Af Amer) BUN/Creatinine Ratio Glucose POC Glucose (mg/dL) 284 H 295 H 339 H Calcium Magnesium Assess/Plan/Problems-Billing Assessment: 72 yo female PMH COPD noncompliant w/ home O2, doesn't use inhalers, current 1.5 ppd smoker, likely JOSEPH and OHS, morbid obesity presenting with acute on chronic hypoxic respiratory failure. likely COPD exacerbation. - Patient Problems (1) COPD exacerbation Current Visit: No Status: Acute Code(s): J44.1 - CHRONIC OBSTRUCTIVE PULMONARY DISEASE W (ACUTE) EXACERBATION SNOMED Code(s): 874395457247119 Comment: #COPD - solumedrol 40mg q12 from q8, taper - dulera, spiriva, duonebs - cftx - f/u sputum cx if able to produce - if altered mental status then get stat ABG to rule out hypercapnic respiratory failure. - goal sat 88-92%, avoid over oxygenation that might reduce respiratory drive. - current smoker, nicotine patch added. likely won't quit at home. (2) Diabetes Current Visit: No Status: Acute Code(s): E11.9 - TYPE 2 DIABETES MELLITUS WITHOUT COMPLICATIONS SNOMED Code(s): 17841758 Comment: #IDDM - increase to 35U BID, give additional 10+(already given 30U tonight) - high dose SSI (3) Acute and chronic respiratory failure Current Visit: Yes Status: Acute Code(s): J96.20 - ACUTE AND CHR RESP FAILURE, UNSP W HYPOXIA OR HYPERCAPNIA SNOMED Code(s): 70011897 Comment: - COPD plan as above. - ?CHF - pt thinks she is on torsemide but does not know dose - CXR with e/o of volume overload; woody nonpitting extremities - torsemide 40mg daily - daily weights, strict io - no recent ECHO. (4) CKD (chronic kidney disease) stage 3, GFR 30-59 ml/min Current Visit: Yes Status: Acute Code(s): N18.3 - CHRONIC KIDNEY DISEASE, STAGE 3 (MODERATE) SNOMED Code(s): 968163777 Comment: PANTS CLOSER was 1.1 in 2016. 1.5-1.7 here. FeUrea and FeNa suggestive of pre-renal. Pt can't remember what dose of torsemide she was on at home. got 40mg po last 2 days. stop for now. CXR had been suggestive of volume overload. Status and Disposition: medicine inpatient.
[2017-11-23] MEDS: Insulin LISPRO* 1 UNITS UNIT SUBCUT SCH ×4 (09:34→20:31)
[2017-11-23] MEDS: Insulin GLARGINE(*) 1 UNITS UNIT SUBCUT SCH ×2 (09:35→20:31)
[2017-11-23] MEDS: methylPREDNISolone SOD 40 MG* 1 ML VIAL IV SCH ×3 (09:37→21:52)
[2017-11-23] MEDS: Torsemide TAB* 20 MG PO SCH (09:38)
[2017-11-23] MEDS: Lisinopril TAB* 5 MG PO SCH (09:39)
[2017-11-23] MEDS: Atorvastatin* 20 MG TAB PO SCH (09:39)
[2017-11-23] MEDS: Nystatin TOP POWDER* 15 GM BTL TOPICAL SCH ×3 (09:41→20:32)
[2017-11-23] MEDS: Nicotine PATCH 21 MG/24 HR* PATCH TRANSDERM SCH (09:43)
[2017-11-23] MEDS: cefTRIAXone 1000 MG SYRINGE IVPB Q24H (in NaCl) IVPB SCH ×2 (19:56)
[2017-11-23] MEDS ORDERED: Insulin GLARGINE(*) 1 UNITS UNIT SUBCUT ONE (21:04)
[2017-11-24] MEDS: Albuterol/Ipratropium NEB.SOL* Albuterol 2.5 MG/Ipratropium 0.5 MG 3 ML INH SCH ×4 (00:13→19:07)
[2017-11-24] MEDS: Heparin VIAL(*) 5000 UNITS/ML VIAL (FIVE THOUSAND) SUBCUT SCH ×3 (05:55→21:10)
[2017-11-24 06:13] LABS: ABS Basophils 0 10^3/ul (0-0.2); ABS Eosinophils 0 10^3/ul (0-0.6); ABS Lymphocytes 0.6 10^3/ul (1.0-4.8); ABS Monocytes 0.4 10^3/ul (0-0.8); ABS Neutrophils 9.2 10^3/ul (1.5-7.7); ABS Nucleated RBC 0 10^3/ul; Eosinophil % 0 % (0-6); Hematocrit 43 % (35-47); Hemoglobin 14.5 g/dl (12.0-16.0); Lymphocyte % 5.7 % (25-47); Mean Corpuscular HGB Conc 34 g/dl (31-36); Mean Corpuscular Hemoglobin 32 pg (27-31); Mean Corpuscular Volume 96 fL (80-97); Mean Platelet Volume 8.8 um3 (7.4-10.4); Nucleated Red Blood Cells % 0.1; Platelet Count 143 10^3/ul (150-450); Red Blood Count 4.52 10^6/ul (4.0-5.4); Red Cell Distribution Width 15 % (10.5-15); White Blood Count 10.2 10^3/ul (3.5-10.8)
[2017-11-24 06:29] LABS: EGFR Non-African American 27.6 (>60)
[2017-11-24] MEDS: Lisinopril TAB* 5 MG PO SCH (07:35)
[2017-11-24] MEDS: Atorvastatin* 20 MG TAB PO SCH (07:35)
[2017-11-24] MEDS: Nicotine PATCH 21 MG/24 HR* PATCH TRANSDERM SCH (07:36)
[2017-11-24] MEDS: Nystatin TOP POWDER* 15 GM BTL TOPICAL SCH ×3 (07:38→21:17)
[2017-11-24] MEDS: Tiotropium CAP.INH* CAP.INH/18 MCG (USE ORDER SET !) INH SCH (07:50)
[2017-11-24] MEDS: Mometasone/Formoter 200/5 MDI INH SCH ×2 (07:50→19:08)
[2017-11-24] MEDS: Insulin GLARGINE(*) 1 UNITS UNIT SUBCUT SCH ×2 (09:11→21:08)
[2017-11-24] MEDS: Insulin LISPRO* 1 UNITS UNIT SUBCUT SCH ×4 (09:12→21:09)
[2017-11-24] MEDS: methylPREDNISolone SOD 40 MG* 1 ML VIAL IV SCH ×2 (09:15→21:11)
--- NOTE | 2017-11-24 15:47 | PN ---
Subjective Date of Service: 11/24/17 Interval History: HOSPITALIST PROGRESS NOTE Patient seen and examined at bedside. Case reviewed and d/w her nurse Cristiana Ayala. She states she was not able to sleep last night because "the bed is too hard". Able to doze off on recliner but did not rest much. Refusing oxygen sometimes. Breathing is improved but not back at baseline. Denies CP or palpitations. Admits she has not been compliant with oxygen and diet, and has smoked more recently. Family History: Unchanged from Admission Social History: Unchanged from Admission Past Medical History: Unchanged from Admission Objective Active Medications: Albuterol/Ipratropium (Duoneb (Albuterol 2.5 Mg/Ipratropium 0.5 Mg)) 1 neb INH Q2H PRN PRN Reason: SOB/WHEEZING Albuterol/Ipratropium (Duoneb (Albuterol 2.5 Mg/Ipratropium 0.5 Mg)) 1 neb INH [id number] AWAKE [facility] Last Admin: 11/24/17 13:21 Dose: 1 neb Atorvastatin Calcium (Lipitor*) 20 mg PO DAILY [facility] Last Admin: 11/24/17 07:35 Dose: 20 mg Dextrose (D50w Syringe 50 Ml*) 12.5 gm IV PUSH .FOR FS < 60 - SS PRN PRN Reason: FS < 60 Heparin Sodium (Porcine) (Heparin Vial(*)) 5,000 units SUBCUT Q8HR [facility] Last Admin: 11/24/17 13:10 Dose: 5,000 units Ceftriaxone Sodium 1,000 mg/ (Sodium Chloride) 10 mls @ 40 mls/hr IVPB Q24H [facility] Last Admin: 11/23/17 19:56 Dose: 40 mls/hr Insulin Glargine (Lantus(*)) 35 units SUBCUT Q12H [facility] Last Admin: 11/24/17 09:11 Dose: 35 units Insulin Human Lispro (Humalog*) 0 units SUBCUT ACHS [facility] PRN Reason: Protocol Last Admin: 11/24/17 12:12 Dose: 6 units Lisinopril (Prinivil Tab*) 5 mg PO DAILY [facility] Last Admin: 11/24/17 07:35 Dose: 5 mg Methylprednisolone Sodium Succinate (Solu-Medrol 40 Mg) 40 mg IV Q12H [facility] Last Admin: 11/24/17 09:15 Dose: 40 mg Mometasone Furoate/Formoterol Fumar (Dulera 200/5 Mdi*) 2 puff INH BID [facility] Last Admin: 11/24/17 07:50 Dose: 2 puff Nicotine (Nicotine Patch 21 Mg/24 Hr*) 1 patch TRANSDERM DAILY [facility] Last Admin: 11/24/17 07:36 Dose: 1 patch Nystatin (Nystatin Top Powder*) 1 applic TOPICAL TID [facility] Last Admin: 11/24/17 13:09 Dose: 1 applic Tiotropium [place] (Spiriva Cap.Inh*) 1 cap INH DAILY [facility] Last Admin: 11/24/17 07:50 Dose: 1 cap Vital Signs - 8 hr 11/24/17 11/24/17 11/24/17 07:54 11:22 13:20 Temperature 98.7 F Pulse Rate 68 62 78 Respiratory 16 18 Rate Blood Pressure 125/53 (mmHg) O2 Sat by Pulse 95 95 Oximetry Oxygen Devices in Use Now: OxyMask - 5 liters Appearance: Morbid obese lady sitting up in recliner in [facility]. Eyes: No Scleral Icterus Ears/Nose/Mouth/Throat: Mucous Membranes Moist Neck: Trachea Midline Respiratory: Symmetrical Chest Expansion and Respiratory Effort, - - BS+ bilaterally decreased with scattered rhonchi Cardiovascular: RRR - Normal S1 and S2 Abdominal: NL Sounds; No Tenderness; No Distention - obese Extremities: - - Bilateral LE edema, appears to be chronic Neurological: Alert and Oriented x 3, NL Muscle Strength and Tone Result Diagrams: 11/24/17 05:45 11/24/17 05:45 Assess/Plan/Problems-Billing Assessment: Ms Mullins is a 72 yo F with PMH of COPD noncompliant w/ home O2, tobacco abuse, morbid obesity, JOSEPH not compliant with CPAP, DM, HTN, HLD, diabetic nephropathy with CKD stage 3, who presented to ED with dyspnea, found to have acute on chronic hypoxic respiratory failure secondary to COPD exacerbation. - Patient Problems (1) Acute and chronic respiratory failure with hypoxia Comment: - Patient admits being non compliant with supplemental O2 at home. - Cannot tolerated nasal canula but willing to continue to use oxymask for now. (2) COPD exacerbation Comment: - Secondary to bronchitis. - Improving. - Continue bronchodilators and taper steroids. - Continue Ceftriaxone #3. - goal sat 88-92%, avoid over oxygenation that might reduce respiratory drive. (3) Tobacco abuse Comment: - Patient continues to smoke 1.5ppd, not willing to quit at this time. - We had a lengthy conversation about the risks of her tobacco abuse. She verbalizes understanding, but states she's been smoking for 50 years and is not ready to quit. - Continue nicotine supplementation. (4) Edema Comment: - Suspect patient may have a component of cor pulmonale. - Check echocardiogram. - Would benefit of diuresis with Torsemide but this has been held due to worsening renal function. (5) Diabetes Comment: - Check Hb A1c. - Considering her diabetes, morbid obesity, and other comorbidities, will refer to [facility] on discharge. - Continue Lantus 35 units BID and Lispro SS. (6) HTN (hypertension) Code(s): I10 - ESSENTIAL (PRIMARY) HYPERTENSION SNOMED Code(s): 93870076 Comment: - Controlled. - Continue Lisinopril. (7) DVT prophylaxis Comment: - SQ heparin. (8) Physical deconditioning Comment: - PT evaluation. (9) DNR (do not resuscitate) Status and Disposition: Inpatient for management of respiratory failure and COPD exacerbation.
[2017-11-24] MEDS: cefTRIAXone 1000 MG SYRINGE IVPB Q24H (in NaCl) IVPB SCH ×2 (19:24)
[2017-11-25] MEDS: Albuterol/Ipratropium NEB.SOL* Albuterol 2.5 MG/Ipratropium 0.5 MG 3 ML INH SCH ×4 (00:13→20:06)
[2017-11-25] MEDS: Heparin VIAL(*) 5000 UNITS/ML VIAL (FIVE THOUSAND) SUBCUT SCH ×3 (05:55→21:40)
[2017-11-25 07:03] LABS: ABS Basophils 0 10^3/ul (0-0.2); ABS Eosinophils 0 10^3/ul (0-0.6); ABS Lymphocytes 0.6 10^3/ul (1.0-4.8); ABS Monocytes 0.5 10^3/ul (0-0.8); ABS Neutrophils 6.6 10^3/ul (1.5-7.7); ABS Nucleated RBC 0 10^3/ul; Eosinophil % 0 % (0-6); Hematocrit 44 % (35-47); Lymphocyte % 7.3 % (25-47); Mean Corpuscular HGB Conc 34 g/dl (31-36); Mean Corpuscular Hemoglobin 33 pg (27-31); Mean Corpuscular Volume 95 fL (80-97); Mean Platelet Volume 8.6 um3 (7.4-10.4); Nucleated Red Blood Cells % 0; Platelet Count 143 10^3/ul (150-450); Red Blood Count 4.57 10^6/ul (4.0-5.4); Red Cell Distribution Width 15 % (10.5-15); White Blood Count 7.7 10^3/ul (3.5-10.8)
[2017-11-25] MEDS: Mometasone/Formoter 200/5 MDI INH SCH ×2 (07:38→20:08)
[2017-11-25] MEDS: Tiotropium CAP.INH* CAP.INH/18 MCG (USE ORDER SET !) INH SCH (07:39)
[2017-11-25] MEDS: Nicotine PATCH 21 MG/24 HR* PATCH TRANSDERM SCH (07:54)
[2017-11-25] MEDS: Atorvastatin* 20 MG TAB PO SCH (07:54)
[2017-11-25] MEDS: Lisinopril TAB* 5 MG PO SCH (07:54)
[2017-11-25] MEDS: Nystatin TOP POWDER* 15 GM BTL TOPICAL SCH ×3 (08:07→21:42)
[2017-11-25] MEDS: methylPREDNISolone SOD 40 MG* 1 ML VIAL IV SCH ×2 (08:34→21:39)
[2017-11-25] MEDS: Insulin LISPRO* 1 UNITS UNIT SUBCUT SCH ×4 (08:34→21:42)
[2017-11-25] MEDS: Insulin GLARGINE(*) 1 UNITS UNIT SUBCUT SCH ×2 (08:34→20:12)
--- NOTE | 2017-11-25 09:56 | ECHO ---
Patient: [facility] Rec#: [id number] : 1945 Date: 11/25/2017 Age: 72y Height: 160.02 cm / 63.0 in Weight: 118.39 kg / 260.9 lbs Sex: F BSA: 2.17 Room#: [facility] Admit Date#: 11/21/2017 Type: Inpatient Referring: Emely Rodriguez MD Reading: Gabe Klein DO Hoistman: Olya Sanchez RDCS CC: Tia Henriquez MD Transthoracic Echocardiogram Indication: Dyspnea, BP: 153/73 HR: 77 Rhythm: NSR Findings History: Smoker, DM, COPD, HLD, HTN, obesity, GERD. The patient was sitting upright in a recliner chair throughout the study, due to respiratory status. Technical Comments: The study quality is fair. The study is technically limited due to patient body habitus. The study was technically limited due to the patient's inability to lay in the left lateral decubitus position. Completed at 0900. Left Ventricle: The left ventricular chamber size is normal. Mild concentric left ventricular hypertrophy is observed. Global left ventricular wall motion and contractility are within normal limits. There is normal left ventricular systolic function. The estimated ejection fraction is 55-60%. The assessment of diastolic function is non-diagnostic.normal left atrial size makes clinically significant diastolic dysfunction unlikely. Left Atrium: The left atrial chamber size is normal. Right Ventricle: The right ventricle is mildly dilated. appears more prominent in RV focused apical view The right ventricular global systolic function is mildly reduced. Right Atrium: The right atrium is mildly dilated. Aortic Valve: The aortic valve is trileaflet. The aortic valve leaflets are mildly thickened. There is no evidence of aortic regurgitation. There is no evidence of aortic stenosis. Mitral Valve: The mitral valve leaflets are mildly thickened. There is a trace of mitral regurgitation. There is no evidence of mitral stenosis. Tricuspid Valve: The tricuspid valve structure is not well visualized. There is trace tricuspid regurgitation. Unable to estimate the right ventricular systolic pressure. There is no tricuspid stenosis. Pulmonic Valve: The pulmonic valve structure is not well visualized. There is a trace pulmonic regurgitation. There is no pulmonic stenosis. Pericardium: There is no significant pericardial effusion. Aorta: There is mild dilatation of the ascending aorta. There is no dilatation of the aortic arch. The aortic root is normal in size. Pulmonary Artery: The main pulmonary artery is not well visualized. Venous: The inferior vena cava is dilated. There is a greater than 50% respiratory change in the inferior vena cava dimension. Conclusions The left ventricular chamber size is normal. Mild concentric left ventricular hypertrophy is observed. There is normal left ventricular systolic function. The estimated ejection fraction is 55-60%. The left atrial chamber size is normal. The right ventricle is mildly dilated. The right ventricular global systolic function is at least mildly reduced. No significant valvular abnormalities noted. Unable to estimate the right ventricular systolic pressure. No recent studies available for comparison at time of interpretation Measurements Name Value Normal Range RVIDd (AP) 2D 2.7 cm (0.9 - 2.6) RVDdMajor (2D) 5.8 cm (2.2 - 4.4) RVAW (2D) 1.3 cm (0.2 - 0.5) RAd ISD 4CH 4.8 cm (3.4 - 4.9) RA (A4C)W 4.8 cm (2.9 - 4.6) IVSd (2D) 1.3 cm (0.6 - 1) LVPWd (2D) 1.3 cm (0.6 - 1) LVIDd (2D) 4.2 cm (3.6 - 5.4) LVIDs (2D) 3 cm - LV FS (2D) 28 % (25 - 45) Aortic Annulus 2.1 cm (1.4 - 2.6) Ao root diameter (2D) 3.4 cm (2.1 - 3.5) Ascending Ao 3.6 cm (2.1 - 3.4) Aortic arch 3.2 cm (1.8 - 3.4) LA dimension (AP) 2D 3.5 cm (2.3 - 3.8) LAd ISD 4CH 4.7 cm (2.9 - 5.3) LA ISD 4CH W 4.2 cm (2.5 - 4.5) Name Value Normal Range LA ESV SP 4CH (A/L) 43 ml - LA ESV SP 2CH (A/L) 43 ml - LA ESV BP (A/L) 44 ml - LA ESV BP (A/L) index 20 ml/m2 - LA ESV SP 4CH (MOD) 40 ml - LA ESV SP 2CH (MOD) 40 ml - Name Value Normal Range MV E-wave Vmax 0.97 m/sec - MV deceleration time 168.3 msec - MV A-wave Vmax 1.16 m/sec - MV E:A ratio 0.84 ratio - LV septal e' Vmax 0.07 m/sec - LV lateral e' Vmax 0.09 m/sec - LV E:e' septal ratio 13.86 ratio - LV E:e' lateral ratio 10.78 ratio - Name Value Normal Range AV Vmax 1.53 m/sec - AV VTI 28.06 cm - AV peak gradient 9.47 mmHg - AV mean gradient 4.58 mmHg - LVOT Vmax 1.19 m/sec - LVOT VTI 24.85 cm - LVOT peak gradient 5.75 mmHg - LVOT mean gradient 2.84 mmHg - DANA Vmax 0.75 m/sec - Name Value Normal Range IVC diameter 2.3 cm - Name Value Normal Range PV Vmax 0.89 m/sec - PV peak gradient 3.16 mmHg -
[2017-11-25] MEDS: Artificial Tears* 15 ML BTL BOTH EYES PRN (12:22)
--- NOTE | 2017-11-25 14:45 | PN ---
Subjective Date of Service: 11/25/17 Interval History: HOSPITALIST PROGRESS NOTE Patient seen and examined at bedside. She feels better today. Breathing is close to baseline, denies chest pain. Family History: Unchanged from Admission Social History: Unchanged from Admission Past Medical History: Unchanged from Admission Objective Active Medications: Albuterol/Ipratropium (Duoneb (Albuterol 2.5 Mg/Ipratropium 0.5 Mg)) 1 neb INH Q2H PRN PRN Reason: SOB/WHEEZING Albuterol/Ipratropium (Duoneb (Albuterol 2.5 Mg/Ipratropium 0.5 Mg)) 1 neb INH [id number] AWAKE [facility] Last Admin: 11/25/17 12:17 Dose: 1 neb Atorvastatin Calcium (Lipitor*) 20 mg PO DAILY [facility] Last Admin: 11/25/17 07:54 Dose: 20 mg Dextrose (D50w Syringe 50 Ml*) 12.5 gm IV PUSH .FOR FS < 60 - SS PRN PRN Reason: FS < 60 Heparin Sodium (Porcine) (Heparin Vial(*)) 5,000 units SUBCUT Q8HR [facility] Last Admin: 11/25/17 13:09 Dose: 5,000 units Ceftriaxone Sodium 1,000 mg/ (Sodium Chloride) 10 mls @ 40 mls/hr IVPB Q24H [facility] Last Admin: 11/24/17 19:24 Dose: 40 mls/hr Insulin Glargine (Lantus(*)) 35 units SUBCUT Q12H [facility] Last Admin: 11/25/17 08:34 Dose: 35 units Insulin Human Lispro (Humalog*) 0 units SUBCUT ACHS [facility] PRN Reason: Protocol Last Admin: 11/25/17 12:06 Dose: 3 units Lisinopril (Prinivil Tab*) 5 mg PO DAILY [facility] Last Admin: 11/25/17 07:54 Dose: 5 mg Methylprednisolone Sodium Succinate (Solu-Medrol 40 Mg) 40 mg IV Q12H [facility] Last Admin: 11/25/17 08:34 Dose: 40 mg Mometasone Furoate/Formoterol Fumar (Dulera 200/5 Mdi*) 2 puff INH BID [facility] Last Admin: 11/25/17 07:38 Dose: 2 puff Nicotine (Nicotine Patch 21 Mg/24 Hr*) 1 patch TRANSDERM DAILY [facility] Last Admin: 11/25/17 07:54 Dose: 1 patch Nystatin (Nystatin Top Powder*) 1 applic TOPICAL TID [facility] Last Admin: 11/25/17 13:09 Dose: 1 applic Polyvinyl Alcohol (Polyvinyl Alcohol 1.4% Opth*) 1 drop BOTH EYES Q2H PRN PRN Reason: DRY EYE Last Admin: 11/25/17 12:22 Dose: 1 drop Tiotropium [place] (Spiriva Cap.Inh*) 1 cap INH DAILY [facility] Last Admin: 11/25/17 07:39 Dose: 1 cap Vital Signs - 8 hr 11/25/17 11/25/17 11/25/17 07:40 07:41 07:59 Temperature 98.1 F Pulse Rate 88 Respiratory 17 18 Rate Blood Pressure 139/72 (mmHg) O2 Sat by Pulse 97 Oximetry 11/25/17 11/25/17 11/25/17 08:40 12:08 12:17 Temperature 99.1 F Pulse Rate 73 80 88 Respiratory 20 18 17 Rate Blood Pressure 141/58 137/43 (mmHg) O2 Sat by Pulse 91 93 93 Oximetry Oxygen Devices in Use Now: Nasal Cannula Appearance: Morbid obese lady sitting up in a recliner in [facility]. Eyes: No Scleral Icterus Ears/Nose/Mouth/Throat: Mucous Membranes Moist Neck: Trachea Midline Respiratory: Symmetrical Chest Expansion and Respiratory Effort, - - BS+ bilaterally decreased with no added sounds Cardiovascular: RRR - Normal S1 and S2 Abdominal: NL Sounds; No Tenderness; No Distention - obese Extremities: - - Chronic lymphedema Neurological: Alert and Oriented x 3 Result Diagrams: 11/25/17 06:45 11/25/17 06:45 Assess/Plan/Problems-Billing Assessment: Ms Mullins is a 72 yo F with PMH of COPD noncompliant w/ home O2, tobacco abuse, morbid obesity, JOSEPH not compliant with CPAP, DM, HTN, HLD, diabetic nephropathy with CKD stage 3, who presented to ED with dyspnea, found to have acute on chronic hypoxic respiratory failure secondary to COPD exacerbation. - Patient Problems (1) Acute and chronic respiratory failure with hypoxia Comment: - Patient admits being non compliant with supplemental O2 at home, but willing to try again at home. (2) COPD exacerbation Comment: - Secondary to bronchitis. - Improving. - Continue bronchodilators and taper steroids. - Continue Ceftriaxone #4. - goal sat 88-92%, avoid over oxygenation that might reduce respiratory drive. (3) Tobacco abuse Comment: - Patient continues to smoke 1.5ppd, not willing to quit at this time. - We had a lengthy conversation about the risks of her tobacco abuse. She verbalizes understanding, but states she's been smoking for 50 years and is not ready to quit. - Continue nicotine supplementation. (4) Edema Comment: - Suspect patient may have a component of cor pulmonale. - Echocardiogram showed mild RV dilation and mild reduction of RVSF. - Would benefit of diuresis with Torsemide but this has been held due to worsening renal function. (5) Diabetes Comment: - Hb A1c 5.9. - Considering her diabetes, morbid obesity, and other comorbidities, will refer to [facility] on discharge. - Continue Lantus 35 units BID and Lispro SS. (6) HTN (hypertension) Code(s): I10 - ESSENTIAL (PRIMARY) HYPERTENSION SNOMED Code(s): 68838311 Comment: - Controlled. - Continue Lisinopril. (7) DVT prophylaxis Comment: - SQ heparin. (8) Physical deconditioning Comment: - PT evaluation. (9) DNR (do not resuscitate) Status and Disposition: Inpatient for management of respiratory failure and COPD exacerbation.
[2017-11-25] MEDS: cefTRIAXone 1000 MG SYRINGE IVPB Q24H (in NaCl) IVPB SCH ×2 (20:12)
[2017-11-26] MEDS: CMCS:Melatonin (NF) 3 MG TAB PO SCH ×2 (02:53→20:42)
[2017-11-26] MEDS: Albuterol/Ipratropium NEB.SOL* Albuterol 2.5 MG/Ipratropium 0.5 MG 3 ML INH SCH ×4 (03:47→20:31)
[2017-11-26] MEDS: Heparin VIAL(*) 5000 UNITS/ML VIAL (FIVE THOUSAND) SUBCUT SCH ×3 (05:42→20:45)
[2017-11-26] MEDS: Nicotine PATCH 21 MG/24 HR* PATCH TRANSDERM SCH (08:35)
[2017-11-26] MEDS: Atorvastatin* 20 MG TAB PO SCH (08:37)
[2017-11-26] MEDS: Lisinopril TAB* 5 MG PO SCH (08:37)
[2017-11-26] MEDS: Insulin LISPRO* 1 UNITS UNIT SUBCUT SCH ×4 (08:37→20:40)
[2017-11-26] MEDS: Insulin GLARGINE(*) 1 UNITS UNIT SUBCUT SCH ×2 (08:37→20:44)
[2017-11-26] MEDS: Nystatin TOP POWDER* 15 GM BTL TOPICAL SCH ×3 (08:37→20:46)
[2017-11-26] MEDS: Mometasone/Formoter 200/5 MDI INH SCH ×2 (08:54→20:32)
[2017-11-26] MEDS: Tiotropium CAP.INH* CAP.INH/18 MCG (USE ORDER SET !) INH SCH (08:54)
[2017-11-26] MEDS: methylPREDNISolone SOD 40 MG* 1 ML VIAL IV SCH (11:45)
[2017-11-26] MEDS: ceFUROXime TAB(*) 250 MG PO SCH ×2 (11:50→20:42)
[2017-11-26] MEDS: predniSONE TAB* 20 MG PO SCH (11:50)
--- NOTE | 2017-11-26 15:01 | PN ---
Subjective Date of Service: 11/26/17 Interval History: HOSPITALIST PROGRESS NOTE Patient seen and examined at bedside. Care reviewed and d/w her RN Haylie Reid. She feels "so so" today. Did not sleep well last night "but I never sleep well" . Denies worsening dyspnea, trying to be more compliant with her O2. Family History: Unchanged from Admission Social History: Unchanged from Admission Past Medical History: Unchanged from Admission Objective Active Medications: Albuterol/Ipratropium (Duoneb (Albuterol 2.5 Mg/Ipratropium 0.5 Mg)) 1 neb INH Q2H PRN PRN Reason: SOB/WHEEZING Albuterol/Ipratropium (Duoneb (Albuterol 2.5 Mg/Ipratropium 0.5 Mg)) 1 neb INH [id number] AWAKE [facility] Last Admin: 11/26/17 13:36 Dose: 1 neb Atorvastatin Calcium (Lipitor*) 20 mg PO DAILY [facility] Last Admin: 11/26/17 08:37 Dose: 20 mg Cefuroxime Axetil (Ceftin Tab(*)) 250 mg PO BID [facility] Last Admin: 11/26/17 11:50 Dose: 250 mg Dextrose (D50w Syringe 50 Ml*) 12.5 gm IV PUSH .FOR FS < 60 - SS PRN PRN Reason: FS < 60 Heparin Sodium (Porcine) (Heparin Vial(*)) 5,000 units SUBCUT Q8HR [facility] Last Admin: 11/26/17 05:42 Dose: 5,000 units Insulin Glargine (Lantus(*)) 35 units SUBCUT Q12H [facility] Last Admin: 11/26/17 08:37 Dose: 35 units Insulin Human Lispro (Humalog*) 0 units SUBCUT ACHS [facility] PRN Reason: Protocol Last Admin: 11/26/17 11:52 Dose: Not Given Lisinopril (Prinivil Tab*) 5 mg PO DAILY [facility] Last Admin: 11/26/17 08:37 Dose: 5 mg Melatonin (Melatonin (Nf)) 3 mg PO BEDTIME [facility] Last Admin: 11/26/17 02:53 Dose: 3 mg Mometasone Furoate/Formoterol Fumar (Dulera 200/5 Mdi*) 2 puff INH BID [facility] Last Admin: 11/26/17 08:54 Dose: 2 puff Nicotine (Nicotine Patch 21 Mg/24 Hr*) 1 patch TRANSDERM DAILY [facility] Last Admin: 11/26/17 08:35 Dose: 1 patch Nystatin (Nystatin Top Powder*) 1 applic TOPICAL TID [facility] Last Admin: 11/26/17 08:37 Dose: 1 applic Polyvinyl Alcohol (Polyvinyl Alcohol 1.4% Opth*) 1 drop BOTH EYES Q2H PRN PRN Reason: DRY EYE Last Admin: 11/25/17 12:22 Dose: 1 drop Prednisone (Deltasone Tab*) 40 mg PO DAILY [facility] Last Admin: 11/26/17 11:50 Dose: 40 mg Tiotropium [place] (Spiriva Cap.Inh*) 1 cap INH DAILY [facility] Last Admin: 11/26/17 08:54 Dose: 1 cap Vital Signs - 8 hr 11/26/17 11/26/17 11/26/17 07:27 07:50 08:50 Temperature 97.9 F Pulse Rate 72 70 Respiratory 20 20 Rate Blood Pressure 126/65 (mmHg) O2 Sat by Pulse 94 Oximetry Oxygen Devices in Use Now: Nasal Cannula Appearance: Morbid obese lady sitting up in bed in [facility]. Eyes: No Scleral Icterus Ears/Nose/Mouth/Throat: Mucous Membranes Moist Neck: Trachea Midline Respiratory: Symmetrical Chest Expansion and Respiratory Effort, - - BS+ bilaterally decreased with no added sounds Cardiovascular: RRR - Normal S1 and S2 Neurological: Alert and Oriented x 3 Result Diagrams: 11/25/17 06:45 11/25/17 06:45 Assess/Plan/Problems-Billing Assessment: Ms Mullins is a 72 yo F with PMH of COPD noncompliant w/ home O2, tobacco abuse, morbid obesity, JOSEPH not compliant with CPAP, DM, HTN, HLD, diabetic nephropathy with CKD stage 3, who presented to ED with dyspnea, found to have acute on chronic hypoxic respiratory failure secondary to COPD exacerbation. - Patient Problems (1) Acute and chronic respiratory failure with hypoxia Comment: - Patient admits being non compliant with supplemental O2 at home, but willing to try again at home. (2) COPD exacerbation Comment: - Secondary to bronchitis. - Improving. - Continue bronchodilators and taper steroids. - Change Ceftriaxone to PO Ceftin. - goal sat 88-92%, avoid over oxygenation that might reduce respiratory drive. (3) Tobacco abuse Comment: - Patient continues to smoke 1.5ppd, not willing to quit at this time. - We had a lengthy conversation about the risks of her tobacco abuse. She verbalizes understanding, but states she's been smoking for 50 years and is not ready to quit. - Continue nicotine supplementation. (4) Edema Comment: - Suspect patient may have a component of cor pulmonale. - Echocardiogram showed mild RV dilation and mild reduction of RVSF. - Would benefit of diuresis with Torsemide but this has been held due to worsening renal function. (5) Diabetes Comment: - Hb A1c 5.9. - Considering her diabetes, morbid obesity, and other comorbidities, will refer to [facility] on discharge. - Continue Lantus 35 units BID and Lispro SS. (6) HTN (hypertension) Code(s): I10 - ESSENTIAL (PRIMARY) HYPERTENSION SNOMED Code(s): 32586255 Comment: - Controlled. - Continue Lisinopril. (7) DVT prophylaxis Comment: - SQ heparin. (8) Physical deconditioning Comment: - PT evaluation appreciated. - Patient is anxious about going home, scared she may not be able to manage at home independently. - CM to research rehab options. (9) DNR (do not resuscitate) Status and Disposition: Inpatient for management of respiratory failure and COPD exacerbation. Sister in law updated at bedside. Her PCP (Dr. Henriquez) was also called and updated.
[2017-11-27] MEDS: Albuterol/Ipratropium NEB.SOL* Albuterol 2.5 MG/Ipratropium 0.5 MG 3 ML INH SCH ×4 (01:29→19:14)
[2017-11-27] MEDS: clonazePAM TAB(*) 0.5 MG PO SCH ×3 (01:37→20:30)
[2017-11-27] MEDS: Heparin VIAL(*) 5000 UNITS/ML VIAL (FIVE THOUSAND) SUBCUT SCH ×3 (05:35→21:26)
[2017-11-27] MEDS: Nystatin TOP POWDER* 15 GM BTL TOPICAL SCH ×3 (07:25→21:13)
[2017-11-27] MEDS: Insulin LISPRO* 1 UNITS UNIT SUBCUT SCH ×4 (07:33→21:26)
[2017-11-27] MEDS: Mometasone/Formoter 200/5 MDI INH SCH ×2 (07:34→19:14)
[2017-11-27] MEDS: Tiotropium CAP.INH* CAP.INH/18 MCG (USE ORDER SET !) INH SCH (07:35)
[2017-11-27] MEDS: Nicotine PATCH 21 MG/24 HR* PATCH TRANSDERM SCH (08:47)
[2017-11-27] MEDS: Atorvastatin* 20 MG TAB PO SCH (08:48)
[2017-11-27] MEDS: Insulin GLARGINE(*) 1 UNITS UNIT SUBCUT SCH ×2 (08:48→20:29)
[2017-11-27] MEDS: ceFUROXime TAB(*) 250 MG PO SCH ×2 (08:49→20:31)
[2017-11-27] MEDS: Lisinopril TAB* 5 MG PO SCH (08:49)
[2017-11-27] MEDS: predniSONE TAB* 20 MG PO SCH (08:49)
[2017-11-27] MEDS ORDERED: predniSONE TAB* 20 MG PO SCH (09:00)
--- NOTE | 2017-11-27 15:56 | PN ---
Subjective Date of Service: 11/27/17 Interval History: HOSPITALIST PROGRESS NOTE Patient seen and examined at bedside. Offers no new complaints today, but very discouraged her CLARICE was denied by insurance. Family History: Unchanged from Admission Social History: Unchanged from Admission Past Medical History: Unchanged from Admission Objective Active Medications: Albuterol/Ipratropium (Duoneb (Albuterol 2.5 Mg/Ipratropium 0.5 Mg)) 1 neb INH Q2H PRN PRN Reason: SOB/WHEEZING Albuterol/Ipratropium (Duoneb (Albuterol 2.5 Mg/Ipratropium 0.5 Mg)) 1 neb INH [id number] [facility]KE [facility] Last Admin: 11/27/17 12:51 Dose: 1 neb Atorvastatin Calcium (Lipitor*) 20 mg PO DAILY [facility] Last Admin: 11/27/17 08:48 Dose: 20 mg Cefuroxime Axetil (Ceftin Tab(*)) 250 mg PO BID [facility] Last Admin: 11/27/17 08:49 Dose: 250 mg Clonazepam (Klonopin Tab(*)) 0.5 mg PO BID [facility] Last Admin: 11/27/17 08:48 Dose: 0.5 mg Dextrose (D50w Syringe 50 Ml*) 12.5 gm IV PUSH .FOR FS < 60 - SS PRN PRN Reason: FS < 60 Heparin Sodium (Porcine) (Heparin Vial(*)) 5,000 units SUBCUT Q8HR [facility] Last Admin: 11/27/17 13:58 Dose: 5,000 units Insulin Glargine (Lantus(*)) 35 units SUBCUT Q12H [facility] Last Admin: 11/27/17 08:48 Dose: 35 units Insulin Human Lispro (Humalog*) 0 units SUBCUT ACHS [facility] PRN Reason: Protocol Last Admin: 11/27/17 12:50 Dose: Not Given Lisinopril (Prinivil Tab*) 5 mg PO DAILY [facility] Last Admin: 11/27/17 08:49 Dose: 5 mg Melatonin (Melatonin (Nf)) 3 mg PO BEDTIME [facility] Last Admin: 11/26/17 20:42 Dose: 3 mg Mometasone Furoate/Formoterol Fumar (Dulera 200/5 Mdi*) 2 puff INH BID [facility] Last Admin: 11/27/17 07:34 Dose: 2 puff Nicotine (Nicotine Patch 21 Mg/24 Hr*) 1 patch TRANSDERM DAILY [facility] Last Admin: 11/27/17 08:47 Dose: 1 patch Nystatin (Nystatin Top Powder*) 1 applic TOPICAL TID [facility] Last Admin: 11/27/17 14:01 Dose: 1 applic Polyvinyl Alcohol (Polyvinyl Alcohol 1.4% Opth*) 1 drop BOTH EYES Q2H PRN PRN Reason: DRY EYE Last Admin: 11/25/17 12:22 Dose: 1 drop Prednisone (Deltasone Tab*) 40 mg PO DAILY [facility] Last Admin: 11/27/17 08:49 Dose: 40 mg Tiotropium Hartley (Spiriva Cap.Inh*) 1 cap INH DAILY [facility] Last Admin: 11/27/17 07:35 Dose: 1 cap Vital Signs - 8 hr 11/27/17 11/27/17 11/27/17 08:00 08:48 10:48 Temperature Pulse Rate Respiratory 18 18 18 Rate Blood Pressure (mmHg) O2 Sat by Pulse Oximetry 11/27/17 11/27/17 11/27/17 10:59 12:54 13:30 Temperature 98.4 F Pulse Rate 87 83 86 Respiratory 18 16 18 Rate Blood Pressure 129/65 120/82 (mmHg) O2 Sat by Pulse 96 99 Oximetry Oxygen Devices in Use Now: Nasal Cannula Appearance: Morbid obese lady sitting up in bed in [facility]. Eyes: No Scleral Icterus Ears/Nose/Mouth/Throat: Mucous Membranes Moist Neck: Trachea Midline Respiratory: Symmetrical Chest Expansion and Respiratory Effort, - - BS+ bilaterally decreased with no added sounds Cardiovascular: RRR - Normal S1 and S2 Extremities: - - Bilateral LE chronic lymphedema Neurological: Alert and Oriented x 3 Result Diagrams: 11/25/17 06:45 11/25/17 06:45 Assess/Plan/Problems-Billing Assessment: Ms Mullins is a 72 yo F with PMH of COPD noncompliant w/ home O2, tobacco abuse, morbid obesity, JOSEPH not compliant with CPAP, DM, HTN, HLD, diabetic nephropathy with CKD stage 3, who presented to ED with dyspnea, found to have acute on chronic hypoxic respiratory failure secondary to COPD exacerbation. - Patient Problems (1) Acute and chronic respiratory failure with hypoxia Comment: - Patient admits being non compliant with supplemental O2 at home, but willing to try again on discharge. (2) COPD exacerbation Comment: - Secondary to bronchitis. - Improving. - Continue bronchodilators, steroids, and Ceftin. - goal sat 88-92%, avoid over oxygenation that might reduce respiratory drive. (3) Tobacco abuse Comment: - Patient continues to smoke 1.5ppd, not willing to quit at this time. - We had a lengthy conversation about the risks of her tobacco abuse. She verbalizes understanding, but states she's been smoking for 50 years and is not ready to quit. - Continue nicotine supplementation. (4) Edema Comment: - Suspect patient may have a component of cor pulmonale. - Echocardiogram showed mild RV dilation and mild reduction of RVSF. - Would benefit of diuresis with Torsemide but this has been held due to worsening renal function. (5) Diabetes Comment: - Hb A1c 5.9. - Considering her diabetes, morbid obesity, and other comorbidities, will refer to [facility] on discharge. - Continue Lantus 35 units BID and Lispro SS. (6) HTN (hypertension) Code(s): I10 - ESSENTIAL (PRIMARY) HYPERTENSION SNOMED Code(s): 58689912 Comment: - Controlled. - Continue Lisinopril. (7) DVT prophylaxis Comment: - SQ heparin. (8) Physical deconditioning Comment: - PT evaluation appreciated. - Patient is anxious about going home, scared she may not be able to manage at home independently. - per CM, her CLARICE stay was denied by insurance. I called the peer to peer appeal line and spoke to Dr. Gonzalez. I believe the patient is making progress with PT but not yet at baseline and would benefit of further rehabilitation, but does not need to be admitted to the hospital anymore, as I believe her chronic problems are as compensated as they're going to be. I was advised patient can appeal this denial. CM to assist us through this process. (9) DNR (do not resuscitate) Status and Disposition: Inpatient for management of respiratory failure and COPD exacerbation.
[2017-11-27] MEDS ORDERED: Benzocaine/Menthol LOZ* 1 LOZENGE MT PRN (17:08)
[2017-11-27] MEDS: CMCS:Melatonin (NF) 3 MG TAB PO SCH (21:13)
[2017-11-28] MEDS: Albuterol/Ipratropium NEB.SOL* Albuterol 2.5 MG/Ipratropium 0.5 MG 3 ML INH SCH ×3 (04:36→12:19)
[2017-11-28] MEDS: Heparin VIAL(*) 5000 UNITS/ML VIAL (FIVE THOUSAND) SUBCUT SCH ×2 (05:45→14:05)
[2017-11-28] MEDS: Nystatin TOP POWDER* 15 GM BTL TOPICAL SCH ×2 (07:57→14:05)
[2017-11-28] MEDS: Insulin LISPRO* 1 UNITS UNIT SUBCUT SCH ×2 (07:58→12:04)
[2017-11-28] MEDS ORDERED: Insulin GLARGINE(*) 1 UNITS UNIT SUBCUT SCH (08:00)
[2017-11-28] MEDS: Tiotropium CAP.INH* CAP.INH/18 MCG (USE ORDER SET !) INH SCH (08:04)
[2017-11-28] MEDS: Mometasone/Formoter 200/5 MDI INH SCH (08:04)
[2017-11-28] MEDS: Nicotine PATCH 21 MG/24 HR* PATCH TRANSDERM SCH (08:52)
[2017-11-28] MEDS: Atorvastatin* 20 MG TAB PO SCH (08:54)
[2017-11-28] MEDS: ceFUROXime TAB(*) 250 MG PO SCH (08:54)
[2017-11-28] MEDS: Lisinopril TAB* 5 MG PO SCH (08:55)
[2017-11-28] MEDS: clonazePAM TAB(*) 0.5 MG PO SCH (08:55)
[2017-11-28] MEDS ORDERED: predniSONE TAB* 10 MG PO SCH (09:00)
[2017-11-28 12:19] VITALS: BP 124/53
[2017-11-28] MEDS: Artificial Tears* 15 ML BTL BOTH EYES PRN (14:05)
--- NOTE | 2017-11-28 14:30 | DS ---
CC: Dr. Henriquez; [facility]. DISCHARGE SUMMARY: DATE OF ADMISSION: 11/21/17 DATE OF DISCHARGE: 11/28/17 PRIMARY CARE PROVIDER: Dr. Henriquez. DISCHARGE DIAGNOSES: 1. Acute on chronic hypoxemic respiratory failure. 2. Chronic obstructive pulmonary disease exacerbation secondary to bronchitis. 3. Chronic cor pulmonale. 4. Tobacco abuse. SECONDARY DIAGNOSES: 1. Morbid obesity with a BMI of 44. 2. Type 2 diabetes. 3. Hypertension. 4. Hyperlipidemia. 5. Chronic obstructive pulmonary disease, oxygen dependent, but noncompliant. 6. Obstructive sleep apnea, noncompliant with CPAP. 7. Probable obesity hypoventilation syndrome. 8. Spinal stenosis. 9. Depression. 10. Anxiety. 11. Gastroesophageal reflux disease. 12. Chronic lower extremity lymphedema. 13. Insomnia. 14. Chronic kidney disease stage 3. MEDICATION LIST: 1. Clonazepam 0.5 mg p.o. b.i.d. p.r.n. anxiety. 2. Lisinopril 5 mg p.o. daily. 3. Atorvastatin 10 mg p.o. daily. 4. Lyrica 150 mg p.o. t.i.d. 5. Metformin 1000 mg p.o. b.i.d. 6. Prednisone taper 30 mg p.o. daily for 2 days, 20 mg for 2 days, 10 mg for 2 days, 5 mg for 2 days and stop. 7. Cefuroxime 250 mg p.o. b.i.d. for 3 more days. 8. Spiriva 1 capsule inhaled daily. 9. Nystatin powder to affected areas t.i.d. 10. Nicotine patch 21 mg topical daily. 11. Dulera 200/5 two puffs inhaled b.i.d. 12. Melatonin 3 mg p.o. at bedtime. 13. Lispro with sliding scale as follows: Fingerstick 131 to 150 - 2 units. 151 to 200 - 3 units. 201 to 250 - 6 units. 251 to 300 - 9 units. 301 to 350 - 12 units. 351 to 400 - 15 units. carey Allen MD. 14. Lantus 30 units subcutaneously q. 12 hours. 15. Chloraseptic lozenges by mouth q. 4 hours p.r.n. sore throat. 16. Artificial Tears 1 drop to both eyes q. 2 hours p.r.n. dry eye. 17. Albuterol/ipratropium 1 nebulization q. 6 hours while awake and q. 2 hours p.r.n. elvia solano. HOSPITAL COURSE: Mrs. Mullins is a 72-year-old lady with a complex past medical history as stated radha lin that presented to the emergency room on 11/21/17 after falling from her chair, confused and hypoxem ic. It is reported that patient was in her usual state of health until the morning of admission when her [id number] went to visit her and she felt the patient was somnolent. The patient slipped out of her chair, unable to get up and she pushed her Life Alert button and her daughter contacted EMS. She was found to have her oxygen saturation 78%. Of note, the patient is supposed to be wearing oxy gen continuously, but she is not compliant with it. For more details about presentation, I refer you to her history and physical. She was admitted under the impression of respiratory failure, COPD exa cerbation. Her chest x-ray showed findings compatible with mild cardiogenic pulmonary edema, but similar to her prior study from 02/05/16. Lower extremity Doppler showed no evidence of deep vein thrombosis. The patient had quick improvement of her symptoms with bronchodilators, antibiotics and steroids. He r major issue appears to be noncompliance. She is noncompliant with her oxygen use. She continues t o smoke a pack and a half of cigarettes a day and she admits to being noncompliant with her diet. Du e to her lower extremity edema, the patient had a transthoracic echocardiogram that showed findings s uggestive of chronic cor pulmonale with mild dilatation of the right ventricle and mildly reduced rig ht ventricle global systolic function. Her ejection fraction was 55% to 60%. The patient initially was very clear that she wanted to return home and she had no plans of stopping the cigarette use and she was not willing to wear her oxygen continuously. With further conversation, the patient is now willing to go to a rehabilitation facility and to wear her oxygen continuously. She is not ready to quit smoking at this point. She understands that she a lready has damage to her lungs and heart and if she continues to smoke, she will be at a very high ri sk for complications and . She verbalized understanding and tells me that she is already 72 yea rs old and she has been smoking for 50 years and she does not see the point of quitting right now. I did contact her primary care provider, Dr. Henriquez, to inform her about the events of this admission and I also think since the patient is not willing to quit smoking at this time and not interested in the diet, weight loss and other modifications, should be a candidate for palliative care consultatio n. She already has a MOLST form with do not resuscitate in place. Regarding her diabetes, she was started on steroids. Her glucose was initially elevated, but as we t apered her steroids down, her glucose is better controlled. Her renal function is in the limit to use metformin. I believe this medication would be helpful to this patient considering her morbid obesit y and insulin resistance, but her renal function has to be monitored closely. As if her creatinine c ontinues to trend up, metformin should be discontinued as it puts her at risk for lactic acidosis. A t this point, I believe the benefit suppresses the risk but her renal function needs to be monitored as outpatient. The patient was seen by Physical Therapy, felt to be deconditioned and the plan is for her to be disc harged to [facility] at this point to continue her rehabilitation process. PHYSICAL EXAMINATION: Vital Signs: Temperature 98.1, heart rate is 64, respiratory rate 16, oxygen saturation 92% on 2 L nasal cannula, blood pressure is 124/53. General: The patient is a pleasant, morbid obese lady, sitting up in the bed in no acute distress. CVS: Normal S1, S2. Regular rate a nd rhythm. Chest: Breath sounds bilaterally decreased with no added sounds. Extremities: Chronic l ymphedema. Neuro: She is alert and oriented x3, able to move all 4 extremities. DIET: Heart healthy, consistent carb diet. ACTIVITY: As tolerated. DISPOSITION: To [facility]. STATUS WHILE IN THE HOSPITAL: Inpatient. Please keep in mind, this is a summarized version of this patient's hospital stay. If you need more i nformation, please feel free to call me at [phone] or please obtain the full medical records. TIME SPENT: Approximately 50 minutes was spent to complete this discharge. [id number]/[facility] #: [id number]
== END 2017-11-28 14:40 | DRG 189 ==
LOC: ED 15:13 → MED 18:40
PROVIDERS: ADMIT Internal Medicine; ATTEND Internal Medicine
DX: J96.21 Acute and chronic respiratory failure with hypoxia (principal); J44.1 Chronic obstructive pulmonary disease with (acute) exacerbation; E66.2 Morbid (severe) obesity with alveolar hypoventilation; J40 Bronchitis, not specified as acute or chronic; I27.81 Cor pulmonale (chronic); E78.5 Hyperlipidemia, unspecified; M48.00 Spinal stenosis, site unspecified; F41.9 Anxiety disorder, unspecified; F32.9 Major depressive disorder, single episode, unspecified; K21.9 Gastro-esophageal reflux disease without esophagitis; I89.0 Lymphedema, not elsewhere classified; G47.00 Insomnia, unspecified; N18.3 Chronic kidney disease, stage 3 (moderate); I12.9 Hypertensive chronic kidney disease with stage 1 through stage 4 chronic kidney disease, or unspecified chronic kidney disease; E11.22 Type 2 diabetes mellitus with diabetic chronic kidney disease; F17.210 Nicotine dependence, cigarettes, uncomplicated; E87.5 Hyperkalemia; M79.662 Pain in left lower leg; E11.40 Type 2 diabetes mellitus with diabetic neuropathy, unspecified; Z66 Do not resuscitate; E11.649 Type 2 diabetes mellitus with hypoglycemia without coma; M19.90 Unspecified osteoarthritis, unspecified site; R05 Cough; Z88.8 Allergy status to other drugs, medicaments and biological substances; Z80.0 Family history of malignant neoplasm of digestive organs; Z99.81 Dependence on supplemental oxygen; Z68.41 Body mass index [BMI] 40.0-44.9, adult; Z79.4 Long term (current) use of insulin; Z91.19 Patient's noncompliance with other medical treatment and regimen; Z82.3 Family history of stroke; Z82.49 Family history of ischemic heart disease and other diseases of the circulatory system; Z83.3 Family history of diabetes mellitus
CPT/HCPCS: 36415; 71045; 80048; 80053; 80320; 80329; 81003; 82140; 82550; 82553; 82570; 82803; 83036; 83605; 83690; 83735; 83880; 84300; 84443; 84484; 84540; 85025; 85379; 85610; 85730; 86140; 93005; 93306; 93970; 94640; 94760; 99284; 99406; A9270-GY; G0480; G8978-GP-CK; G8978-GP-CL; G8979-GP-CI; G8979-GP-CJ; J0696; J1644; J2920; J2930; J3475; J7512

== ENCOUNTER 2018-11-02 22:11 | Emergency (ER) | payer MEDICARE ==
[2018-11-02] MEDS ORDERED: Pregabalin CAP(*) 50 MG PO ONE (22:29)
--- NOTE | 2018-11-02 22:34 | ED ---
Abdominal Pain/Female - HPI Summary HPI Summary: The patient is a 73 year old female who is presenting to the [facility] via ambulance with a chief complaint of abd pain. The patient states that she is has neuropathy and has a prescription of lyrica which as run out 4 days ago. The patient used to live at [facility], where she received the medication prescription initially. Later she moved to [facility] and she had been taken Lyrica up until 4 days ago where there was no new medication prescribed by her doctor. The patient states that this was due to the [facility] physician not having the authority to prescribe her the medication and that she required permission from her PCP. The patient denies vomiting, and diarrhea. She is positive she has nausea. She also states that the symptoms are consistent with previous episodes of abd pain that she has had when she was not on lyrica. The symptoms are aggravated by nothing. The symptoms are alleviated by nothing. The pain is rated to be an 8/10 in severity. - History of Current Complaint Chief Complaint: EDAbdPain Stated Complaint: STOMACH PAIN PER EMS Time Seen by Provider: 11/02/18 22:17 Hx Obtained From: Patient Onset/Duration: Gradual Onset, Lasting Days - 4 days Timing: Constant Severity Initially: Severe Severity Currently: Severe Pain Intensity: 8 Pain Scale Used: 0-10 Numeric Location: Diffuse Aggravating Factor(s): Nothing Alleviating Factor(s): Nothing Associated Signs and Symptoms: Negative: Nausea, Vomiting, Diarrhea Allergies/Adverse Reactions: Allergies Allergy/AdvReac Type Severity Reaction Status Date / Time paroxetine [From Paxil] Allergy Runny Nose Verified 11/21/17 15:22 PMH/Surg Hx/FS Hx/Imm Hx Endocrine/Hematology History: Reports: Hx Diabetes - insulin dependent Cardiovascular History: Reports: Hx Hypertension, Other Cardiovascular Problems/ Disorders - HLD, BLE Edema Respiratory History: Reports: Hx Chronic Obstructive Pulmonary Disease (COPD), Other Respiratory Problems/Disorders - sob with exertion, tobacco abuse Denies: Hx Asthma, Hx Pneumonia GI History: Reports: Hx Gastroesophageal Reflux Disease, Other GI Disorders - stomach discomfort Musculoskeletal History: Reports: Other Musculoskeletal History - spinal stenosis Sensory History: Reports: Hx Contacts or Glasses Denies: Hx Hearing Aid Opthamlomology History: Reports: Hx Contacts or Glasses Psychiatric History: Reports: Hx Anxiety, Hx Depression, Other Psychiatric Issues/Disorders - agoraphobia, insomnia - Cancer History Hx Chemotherapy: No Hx Radiation Therapy: No - Surgical History Surgery Procedure, Year, and Place: [place]/ lazy eye right as kid Infectious Disease History: No Infectious Disease History: Denies: Traveled Outside the [place] in Last 30 Days - Family History Known Family History: Positive: Hypertension, Diabetes - Social History Occupation: Disabled, Retired [facility]: [facility] Alcohol Use: None Hx Substance Use: No Substance Use Type: Reports: None Hx Tobacco Use: Yes Smoking Status (MU): Heavy Every Day Tobacco Smoker Type: Cigarettes Amount Used/How Often: 1 1/2 ppd Length of Time of Smoking/Using Tobacco: 40+ years Have You Smoked in the Last Year: Yes Review of Systems Constitutional: Negative Eyes: Negative ENT: Negative Cardiovascular: Negative Respiratory: Negative Positive: Abdominal Pain, Nausea. Negative: Vomiting, Diarrhea Genitourinary: Negative Musculoskeletal: Negative Skin: Negative Neurological: Negative Psychological: Normal All Other Systems Reviewed And Are Negative: Yes Physical Exam - Summary Physical Exam Summary: VITAL SIGNS: Reviewed. GENERAL: Patient is a Morbidly obese (FEMALE) who is lying comfortable in the stretcher. Patient is not in any acute respiratory distress. HEAD AND FACE: No signs of trauma. No ecchymosis, hematomas or skull depressions. No sinus tenderness. EYES: PERRLA, EOMI x 2, No injected conjunctiva, no nystagmus. EARS: Hearing grossly intact. Ear canals and tympanic membranes are within normal limits. MOUTH: Oropharynx within normal limits. NECK: Supple, trachea is midline, no adenopathy, no JVD, no carotid bruit, no c- spine tenderness, neck with full ROM. CHEST: Symmetric, no tenderness at palpation LUNGS: Clear to auscultation bilaterally. No wheezing or crackles. CVS: Regular rate and rhythm, S1 and S2 present, no murmurs or gallops appreciated. ABDOMEN: Soft, non-tender. No signs of distention. No rebound no guarding, and no masses palpated. Bowel sounds are normal. EXTREMITIES: FROM in all major joints, no edema, no cyanosis or clubbing. NEURO: Alert and oriented x 3. No acute neurological deficits. Speech is normal and follows commands. SKIN: Chronic skin changes bilaterally to both lower extremities. Triage Information Reviewed: Yes Vital Signs On Initial Exam: Initial Vitals Temp Pulse Resp BP Pulse Ox 98.4 F 61 20 143/63 97 11/02/18 22:13 11/02/18 22:13 11/02/18 22:13 11/02/18 22:13 11/02/18 22:13 Vital Signs Reviewed: Yes Diagnostics - Vital Signs Vital Signs Temp Pulse Resp BP Pulse Ox 11/02/18 22:13 98.4 F 61 20 143/63 97 - Laboratory Lab Statement: Any lab studies that have been ordered have been reviewed, and results considered in the medical decision making process. Abdominal Pain Fem Course/Dx - Course Course Of Treatment: The patient is a 73 year old female who is presenting to the [facility] with a chief complaint of medication refill. We learned from the patient that her lyrica medication has not been refilled and checked her medication history. The patient's symptoms are consistent with previous symptoms that have occured when she has not received her medication as per patient report. She also has a PMHx of diabetes and neuropathy. The patient will be discharged to [place] with a dx of medication refill and neuropathy. The patient is agreeable to this plan. - Diagnoses Provider Diagnoses: Medication refill, Neuropathy Discharge - Sign-Out/Discharge Documenting (check all that apply): Patient Departure Patient Received Moderate/Deep Sedation with Procedure: No - Discharge Plan Condition: Stable Disposition: HOME Prescriptions: Pregabalin CAP(*) [Lyrica CAP(*)] 150 mg PO TID #14 cap MDD 3 Patient Education Materials: Peripheral Neuropathy (ED), Medicine Refill (ED) Referrals: Tia Henriquez MD [Primary Care Provider] - Additional Instructions: RETURN TO THE EMERGENCY DEPARTMENT FOR CHANGING OR WORSENING SYMPTOMS. FOLLOW UP WITH PCP IN 1-2 DAYS. - Attestation Statements Document Initiated by Scribe: Yes Documenting Scribe: Vijay Davis Provider For Whom Scribe is Documenting (Include Credential): Dr. Johanne Barajasibdelia Attestation: Vijay Garcia scribed for Dr. Bela Echeverria on 11/02/18 at 5206. Status of Scribe Document: Ready
[2018-11-02 23:17] VITALS: BP 136/62
== END 2018-11-02 23:17 | disposition home or self-care (01) ==
LOC: ED 22:11
DX: E11.40 Type 2 diabetes mellitus with diabetic neuropathy, unspecified (principal); Z79.4 Long term (current) use of insulin; Z76.0 Encounter for issue of repeat prescription; I10 Essential (primary) hypertension; Z90.49 Acquired absence of other specified parts of digestive tract; Z88.8 Allergy status to other drugs, medicaments and biological substances; F17.210 Nicotine dependence, cigarettes, uncomplicated
CPT/HCPCS: 99283; A9270-GY

== ENCOUNTER → 2019-07-29 07:50 | Day surgery (SDC) | payer MEDICAID, MEDICARE ==
[~2019-07-29 07:50] MED LIST: Acetaminophen TAB* 325 MG PO PRN; Buffered Lidocaine 1% SYRIN* 1 ML/SYRINGE INTRADERM ONE; Cyclopentolate 1% OPTH.SOL* 2 ML BTL ONE; Ketorolac 0.5% OPHTH (NF) 0.5 % 5 ML BTL ONE; Lidocaine 1% MPF ** 5 ML VIAL ONE; Lidocaine 2% w/ EPI 1:200,000* 20 ML SDV VIAL ONE; Midazolam* 1 MG/ML 2 ML VIAL (2 MG) ONE; Neomycin/Polymy/Dex OPTH.SUSP* MAXITROL 0.1% 5 ML ONE; Phenylephrine OPHTH SOL 2.5%* 2 ML ONE; Povidone Iodine 5% OPTH* 30 ML BTL ONE; Proparacaine 0.5% OPHTH.SOL* 15 ML BTL ONE; acetaZOLAMIDE TAB* 250 MG ONE
[2019-07-29 10:21] VITALS: BP 125/72
--- NOTE | 2019-07-29 12:05 | OP ---
OPERATIVE NOTE: DATE OF OPERATION: 07/29/19 DATE OF : 43 SURGEON: Christopher Chao MD PREOPERATIVE DIAGNOSIS: Cataract right eye. POSTOPERATIVE DIAGNOSIS: Cataract right eye. OPERATIVE PROCEDURE: Extracapsular cataract extraction with intraocular lens implant right eye. PROCEDURE: The patient was brought to the operating room after being given 1/2% Alcaine with epineph rine drops in the preoperative area. The eye was prepped and draped in the usual sterile fashion. S terile drape and eyelid speculum were placed. Again, topical 1/2% Alcaine with epinephrine was given . A paracentesis incision was made at the 9 o'clock position with the No.75 blade. Clear cornea inc ision 2.2 x 2.2-mm was created at the 12 o'clock position starting at the anterior limbus using the 2 .2-mm keratome. The anterior chamber was irrigated with 0.4 mL of 1% non-preservative intracameral l idocaine and filled with DisCoVisc. A capsulorrhexis was completed using the cystotome and the Utrat a forceps. Hydrodissection was performed with balanced salt solution. The lens nucleus was removed w ith the Phacoemulsification handpiece without incident. Cortex was removed with the irrigation-aspir ation handpiece. The capsular bag was re-inflated using DisCoVisc and a [id number] implant was insert ed with the shooter. The irrigation-aspiration handpiece was used to remove all residual DisCoVisc. The eye was refilled with balanced salt solution and the wound checked and found to be watertight. Topical Maxitrol drops were given. [id number]/[facility] #: [id number]
== END | disposition home or self-care (01) ==
LOC: OREAST 07:50
PROVIDERS: ATTEND Specialist
DX: H25.811 Combined forms of age-related cataract, right eye (principal); H35.3 Degeneration of macula and posterior pole; E11.9 Type 2 diabetes mellitus without complications; Z79.84 Long term (current) use of oral hypoglycemic drugs; H35.3121 Nonexudative age-related macular degeneration, left eye, early dry stage; F17.200 Nicotine dependence, unspecified, uncomplicated; M19.90 Unspecified osteoarthritis, unspecified site
CPT/HCPCS: A9270-GY; J2250; V2632

== ENCOUNTER 2019-08-05 08:35 | Day surgery (SDC) | payer MEDICARE ==
[~2019-08-05 08:35] MED LIST changes: -Acetaminophen TAB* 325 MG PO PRN; -Cyclopentolate 1% OPTH.SOL* 2 ML BTL ONE; -Ketorolac 0.5% OPHTH (NF) 0.5 % 5 ML BTL ONE; -Lidocaine 1% MPF ** 5 ML VIAL ONE; -Lidocaine 2% w/ EPI 1:200,000* 20 ML SDV VIAL ONE; -Midazolam* 1 MG/ML 2 ML VIAL (2 MG) ONE; -Neomycin/Polymy/Dex OPTH.SUSP* MAXITROL 0.1% 5 ML ONE; -Phenylephrine OPHTH SOL 2.5%* 2 ML ONE; -Povidone Iodine 5% OPTH* 30 ML BTL ONE; -Proparacaine 0.5% OPHTH.SOL* 15 ML BTL ONE; -acetaZOLAMIDE TAB* 250 MG ONE
[2019-08-05] MEDS ORDERED: Neomycin/Polymy/Dex OPTH.SUSP* MAXITROL 0.1% 5 ML ONE (09:43)
[2019-08-05] MEDS ORDERED: Povidone Iodine 5% OPTH* 30 ML BTL ONE (09:43)
[2019-08-05] MEDS ORDERED: Lidocaine 1% MPF ** 5 ML VIAL ONE (09:43)
[2019-08-05] MEDS ORDERED: Ketorolac 0.5% OPHTH (NF) 0.5 % 5 ML BTL ONE (09:43)
[2019-08-05] MEDS ORDERED: Lidocaine 2% w/ EPI 1:200,000* 20 ML SDV VIAL ONE (09:43)
[2019-08-05] MEDS ORDERED: Phenylephrine OPHTH SOL 2.5%* 2 ML ONE (09:43)
[2019-08-05] MEDS ORDERED: Proparacaine 0.5% OPHTH.SOL* 15 ML BTL ONE (09:43)
[2019-08-05] MEDS ORDERED: Cyclopentolate 1% OPTH.SOL* 2 ML BTL ONE (09:43)
[2019-08-05] MEDS ORDERED: acetaZOLAMIDE TAB* 250 MG ONE (09:43)
[2019-08-05] MEDS ORDERED: Midazolam* 1 MG/ML 2 ML VIAL (2 MG) ONE ×2 (10:52→11:41)
[2019-08-05 12:25] VITALS: BP 121/49
--- NOTE | 2019-08-05 12:56 | OP ---
DATE OF OPERATION: 08/05/2019. DATE OF : 1945. SURGEON: Christopher Chao M.D. PREOPERATIVE DIAGNOSIS: Cataract left eye. POSTOPERATIVE DIAGNOSIS: Cataract left eye. OPERATIVE PROCEDURE: Extracapsular cataract extraction with intraocular lens implant left eye. PROCEDURE: The patient was brought to the operating room after being given 1/2% Alcaine with epineph rine drops in the preoperative area. The eye was prepped and draped in the usual sterile fashion. S terile drape and eyelid speculum were placed. Again, topical 1/2% Alcaine with epinephrine was given . A paracentesis incision was made at the 3 o'clock position with the No.75 blade. Clear cornea inc ision 2.2 x 2.2-mm was created at the 6 o'clock position starting at the anterior limbus using the 2. 2-mm keratome. The anterior chamber was irrigated with 0.4 mL of 1% non-preservative intracameral li docaine and filled with DisCoVisc. A capsulorrhexis was completed using the cystotome and the Utrata forceps. Hydrodissection was performed with balanced salt solution. The lens nucleus was removed wi th the Phacoemulsification handpiece without incident. Cortex was removed with the irrigation-aspira tion handpiece. The capsular bag was re-inflated using DisCoVisc and an [id number] implant was insert ed with the shooter. The irrigation-aspiration handpiece was used to remove all residual DisCoVisc. The eye was refilled with balanced salt solution and the wound checked and found to be watertight. Topical Maxitrol drops were given. [id number]/[facility] #: [id number]
== END 2019-08-05 12:15 | disposition home or self-care (01) ==
LOC: OREAST 08:35
PROVIDERS: ATTEND Specialist
DX: H25.812 Combined forms of age-related cataract, left eye (principal); H35.3121 Nonexudative age-related macular degeneration, left eye, early dry stage; E11.9 Type 2 diabetes mellitus without complications; Z79.84 Long term (current) use of oral hypoglycemic drugs; Z79.4 Long term (current) use of insulin; F17.200 Nicotine dependence, unspecified, uncomplicated; J44.9 Chronic obstructive pulmonary disease, unspecified; Z99.81 Dependence on supplemental oxygen; I10 Essential (primary) hypertension; E78.5 Hyperlipidemia, unspecified; K21.9 Gastro-esophageal reflux disease without esophagitis; M19.90 Unspecified osteoarthritis, unspecified site; F41.9 Anxiety disorder, unspecified
CPT/HCPCS: A9270-GY; J2250; V2632

== ENCOUNTER 2019-09-17 12:31 | Emergency (ER) | payer MEDICARE ==
[2019-09-17] MEDS ORDERED: Acetaminophen TAB* 325 MG PO ONE (12:41)
--- OUTSIDE RECORDS SUMMARY | 2019-09-17 12:45 | XMS REPORT ---
:1945 Author Organization [facility] Care Team Providers Name Role Phone Unavailable Unavailable Unavailable Problems Condition Condition Condition Status Onset Resolution Last Treating Comments Name Details Category Date Date Treatment Clinician Date Cellulitis Cellulitis Diagnosis Active Bebe of right of right 09-01 Lawson lower limb lower limb Allergies, Adverse Reactions, Alerts Allergy Allergy Type Status Severity Reaction(s) Onset Inactive Treating Comments Name Date Date Clinician Paxil Medication Active Unknown coughing 2019-08 Terri Beam Name ID [id number] Medications Ordered Filled Start Stop Current Ordering Indication Dosage Frequency Signature Comments Components Medication Medication Date Date Medication? Clinician (SIG) Name Name No Known No Known No None None None Medications Medications For This For This Patient Patient Procedures This patient has no known procedures. Results This patient has no known results.
--- OUTSIDE RECORDS SUMMARY | 2019-09-17 12:45 | XMS REPORT | Summary of Care ---
:[address] [facility] Address [address] [place] [address] Care Team Providers Name Role Phone Tia Henriquez Primary Care Provider Christopher Chao MD Primary Exhibit Specialist/Ceo Na Reason for Visit Reason Comments Check Up physical for long view Encounter Details Date Type Department Care Team Description 09/14/2019 Office Visit [facility] Tia Henriquez MD Essential hypertension (Primary Dx); Medicine [address] Chronic obstructive pulmonary disease, unspecified COPD type (HCC); [address] [place] [address] Venous stasis dermatitis of both lower extremities; [place] [address] JOSEPH (obstructive sleep apnea); [phone] Pedal edema; Type 2 diabetes mellitus without complication, with long-term current use of insulin ([facility]) Allergies Active Allergy Reactions Severity Noted Date Comments Paroxetine Hydrochloride Other 06/06/2009 Coughing,sneezing documented as of this encounter (statuses as of 09/14/2019) Medications Medication Sig Dispensed Refills Start End Date Status Date BASAGLAR KWIKPEN Inject 35 Units 45 mL 1 Active 100 UNIT/ML beneath the skin 9 Subcutaneous EVERY TWELVE Solution HOURS. Pen-injector Acetaminophen Take 2 Tabs by 100 Cap 3 Active (TYLENOL) 325 MG mouth EVERY SIX 9 Oral Cap HOURS NEEDED (pain). ADVAIR DISKUS Take 1 INHL by 180 Each 3 Active 250-50 MCG/DOSE inhalation 9 Inhalation AEROSOL DAILY. POWDER, BREATH ACTIVATED albuterol HFA Take 2 Puffs by 1 Inhaler 5 Active (VENTOLIN HFA) 108 inhalation EVERY 9 (90 Base) MCG/ACT SIX HOURS Inhalation Aero NEEDED Soln (wheezing). atorvastatin Take 1 Tab by 90 Tab 3 Active (LIPITOR) 20 MG mouth DAILY. 9 Oral Tab furosemide (LASIX) Take 1 Tab by 90 Tab 3 Active 20 MG Oral Tab mouth DAILY. 9 Insulin Pen Needle 1 Each by 300 Each 3 Active (1ST TIER UNIFINE Injection route 9 PENTIPS) 31G X 5 FIVE TIMES MM Does not apply DAILY. Dx Z79.4 Misc mometasone 1 Appl by 30 mL 2 Active (ELOCON) 0.1 % Topical route 9 Apply externally THREE TIMES PER SolutionIndication WEEK. Apply to s: Dermatitis lesion on the scalp Omeprazole 40 MG Take 1 Cap by 90 Cap 3 Active Oral CAPSULE mouth DAILY. 9 DELAYED RELEASE polyethylene Take 17 g by 578 g 5 Active glycol (MIRALAX) mouth DAILY 9 Oral Powder NEEDED (constipation). albuterol-ipratrop 3 mL by 270 mL 0 Active ium (DUO-NEB) Inhalation-SVN 9 0.5-2.5 (3) MG/3ML route EVERY FOUR Inhalation HOURS NEEDED SolutionIndication (wheezing). s: COPD (chronic obstructive pulmonary disease) ([facility]) emollient Apply 1 Appl by 113 g 5 Active externally Cream Topical route 9 DIRECTED. Apply to both legs after shower, for dry legs. Bisacodyl 5 MG Take 1 Tab by 180 Tab 3 Active Oral Tab EC mouth TWICE 9 DAILY. ASPIRIN LOW DOSE TAKE 1 TABLET BY 100 Tab 4 Active 81 MG Oral Tab EC MOUTH DAILY DX: 9 PROPHYLAXIS QC NATURAL TAKE 2 TABLETS 120 Tab 4 Active VEGETABLE LAXATIVE BY MOUTH TWICE 9 8.6 MG Oral Tab DAILY. DX: CONSTIPATION Insulin Glargine Inject 35 Units 0 Active (BASAGLAR KWIKPEN) beneath the skin 100 UNIT/ML TWICE DAILY. Subcutaneous Solution Pen-injector DEEP SEA NASAL USE 2 SPRAYS 88 mL 2 Active SPRAY 0.65 % Nasal INTO EACH 9 Solution NOSTRIL EVERY 4 HOURS NEEDED DX: DRY NARES Dulaglutide Inject 1 Appl 6 mL 0 Active (TRULICITY) 1.5 beneath the skin 9 MG/0.5ML EVERY 7 DAYS. Subcutaneous Solution Pen-injector Nystatin [id number] 0.0001 g by 60 g 5 Active UNIT/GM Apply Apply externally 9 externally route TWICE PowderIndications: DAILY. Affected Candidiasis, area intertrigo Glucose Blood In 1 Strip by In 300 Strip 3 Active Vitro Vitro route FOUR 9 StripIndications: TIMES DAILY. Dx Type 1 diabetes Z79.4 One Touch. mellitus with diabetic neuropathy (HCC) bacitracin 500 Apply to wound 1 Tube 0 Active UNIT/GM Apply twice daily for 0 externally 10 days. OintmentIndication s: Cellulitis of right lower extremity clonazePAM Take 1 Tab by 60 Tab 0 Active (KLONOPIN) 0.5 MG mouth EVERY 0 Oral Tab TWELVE HOURS NEEDED (anxiety). Max Daily Amount: 1 mg. LYRICA 100 MG Oral Take 2 Caps by 120 Cap 0 Active Cap mouth TWICE 0 DAILY. Max Daily Amount: 400 mg. Lancets (ONETOUCH 1 FOUR TIMES A 100 Each 4 Active DELICA PLUS DAY DX: DIABETES 0 [id number]) Does MELLITUS not apply MiscIndications: Type 1 diabetes mellitus with diabetic neuropathy (HCC) torsemide Take 1 Tab by 60 Tab 1 Active (DEMADEX) 10 MG mouth DAILY. 0 Oral TabIndications: Pedal edema pregabalin Take 2 Caps by 120 Cap 2 Active (LYRICA) 100 MG mouth TWICE 0 Oral DAILY. Max Daily CapIndications: Amount: 400 mg. Other chronic pain doxycycline Take 100 mg by 20 Tab 0 09/14/19 Discontinued (VIBRAMYCIN) 100 mouth TWICE 0 20 (Other) MG Oral DAILY. TabIndications: Cellulitis of right lower extremity documented as of this encounter (statuses as of 09/14/2019) Active Problems Problem Noted Date Pedal edema 11/05/2018 Overview: Onset 2017 - Does not have right sided Heart failure Type 1 diabetes mellitus with diabetic neuropathy 11/05/2018 Chronic respiratory failure with hypoxia 11/05/2018 Former smoker 11/05/2018 Overview: Quit 2018 Resides in [facility] facility 05/29/2018 Type 2 diabetes mellitus without complication, with long-term current use 08/2016 of insulin Anxiety 03/01/2016 Overview: 10/12 Will refill klonopin in 2 months for 2 more months- ( follow up in december ) Generalized anxiety disorder 07/07/2015 Overview: [facility] stay [facility] twice [facility] - NAFLD (nonalcoholic fatty liver disease) 12/01/2013 Overview: Seen on CT scan 2012, borderline AST Morbid obesity 02/06/2012 Macular degeneration 04/13/2010 IBS (irritable bowel syndrome) 07/25/2009 Pure hypercholesterolemia 06/17/2009 Overview: Per medical records of [facility], Dr. Delgado. GERD (gastroesophageal reflux disease) 06/17/2009 Overview: Per medical [facility] of [facility], Dr. Delgado. Osteoarthritis of knee Chronic pain Overview: neuropathic pain syndrome, Dr. Stanley Diabetes mellitus Hypertension Colon polyp Overview: Dr. Silver COPD (chronic obstructive pulmonary disease) Overview: Oxygen through [employer] Neuropathic Pain Syndrome JOSEPH (obstructive sleep apnea) Overview: "I never went to sleep" on polysomnogram in 2006, repeat home testing in 2010 showed AHI 9.1 with 10 minutes of desaturation, referred for auto-CPAP documented as of this encounter (statuses as of 09/14/2019) Resolved Problems Problem Noted Date Resolved Date Nasal septal deviation 07/25/2009 12/16/2014 Insomnia 06/06/2009 01/03/2012 LBP (low back pain) 12/16/2014 Tobacco use disorder 11/05/2018 Overview: Quit 2018 Anxiety disorder 12/16/2014 documented as of this encounter (statuses as of 09/14/2019) Immunizations Name Administration Dates Next Due Influenza (IM) Preservative Free 05/07/2014, 05/21/2013, 05/14/2012 Influenza Vaccine 65 Yrs + 05/07/2019 Influenza Vaccine High Dose 06/04/2017, 05/15/2016, 05/05/2015 Influenza Vaccine Split 05/14/2009 Influenza Vaccine Whole 05/03/2011 Influenza Virus Vaccine Pres Free 6-35 05/29/2010 Months PNEUMOCOCCAL POLYSACCHARIDE VACCINE 05/03/2011 Pneumococcal Conjugate(13 Valent) 06/04/2017 TETANUS & DIPHTHERIA TOXOID (OVER 7 YRS) 12/06/2004 documented as of this encounter Social History Tobacco Use Types Packs/Day Years Used Date Former Smoker Cigarettes 1.5 40 Smokeless Tobacco: Never Used Alcohol Use Drinks/Week oz/Week Comments No 0 Standard drinks or equivalent 0.0 Sex Assigned at Date Recorded Not on file Job Start Date Occupation Industry Not on file Not on file Not on file Travel History Travel Start Travel End No recent travel history available. documented as of this encounter Last Filed Vital Signs Vital Sign Reading Time Taken Comments Blood Pressure 122/70 09/14/2019 1:16 PM EST Pulse 64 09/14/2019 1:16 PM EST Temperature 35.9 09/14/2019 1:16 PM C (96.7 EST F) Respiratory Rate - - Oxygen Saturation 93% 09/14/2019 1:16 PM EST Inhaled Oxygen Concentration - - Weight 123.5 kg (272 lb 3.2 oz) 09/14/2019 1:16 PM EST Height 160 cm (5' 3") 09/14/2019 1:16 PM EST Body Mass Index 48.22 09/14/2019 1:16 PM EST documented in this encounter Patient Instructions Patient InstructionsTia Henriquez MD - 09/14/2019 1:20 PM ESTPlan 1. increase twice daily basalgar to 44 units - Cut back if blood sugar getting below 100 2. Continue torsemide 10 mg daily - no adjustment necessary - 3. Compression stockings medically necessary - wear every day documented in this encounter Progress Notes Tia Henriquez MD - 09/14/2019 1:20 PM EST NAME:Sabine Mullins 1945: 1945 ENC Date: 09/14/2019 CC: Chief Complaint Patient presents with Check Up physical for long view Sabine Mullins is a 74-y.o. female 1. Not wearing compression stockings - using mechaincal stockings more regularly - 2. Insulin- not sure if trulicity helping - ( was started to control mealtime insulini- ) Bloodsugar up to 300 at bed disucssed upping the insulin to 44 units twiice daily Current Outpatient Medications Medication Sig Acetaminophen (TYLENOL) 325 MG Oral Cap Take 2 Tabs by mouth EVERY SIX HOURS NEEDED (pain). ADVAIR DISKUS 250-50 MCG/DOSE Inhalation AEROSOL POWDER, BREATH ACTIVATED Take 1 INHL by inhalation DAILY. albuterol HFA (VENTOLIN HFA) 108 (90 Base) MCG/ACT Inhalation Aero Soln Take 2 Puffs by inhalation EVERY SIX HOURS NEEDED (wheezing). albuterol-ipratropium (DUO-NEB) 0.5-2.5 (3) MG/3ML Inhalation Solution 3 mL by Inhalation-SVNroute EVERY FOUR HOURS NEEDED (wheezing). ASPIRIN LOW DOSE 81 MG Oral Tab EC TAKE 1 TABLET BY MOUTH DAILY DX: PROPHYLAXIS atorvastatin (LIPITOR) 20 MG Oral Tab Take 1 Tab by mouth DAILY. bacitracin 500 UNIT/GM Apply externally Ointment Apply to wound twice daily for 10 days. BASAGLAR KWIKPEN 100 UNIT/ML Subcutaneous Solution Pen-injector Inject 35 Units beneath the skin EVERY TWELVE HOURS. Bisacodyl 5 MG Oral Tab EC Take 1 Tab by mouth TWICE DAILY. clonazePAM (KLONOPIN) 0.5 MG Oral Tab Take 1 Tab by mouth EVERY TWELVE HOURS NEEDED (anxiety). Max Daily Amount: 1 mg. DEEP SEA NASAL SPRAY 0.65 % Nasal Solution USE 2 SPRAYS INTO EACH NOSTRIL EVERY 4 HOURS NEEDED DX: DRY NARES Dulaglutide (TRULICITY) 1.5 MG/0.5ML Subcutaneous Solution Pen-injector Inject 1 Appl beneaththe skin EVERY 7 DAYS. emollient Apply externally Cream 1 Appl by Topical route DIRECTED. Apply to both legs after shower, for dry legs. furosemide (LASIX) 20 MG Oral Tab Take 1 Tab by mouth DAILY. Glucose Blood In Vitro Strip 1 Strip by In Vitro route FOUR TIMES DAILY. Dx Z79.4 One Touch. Insulin Glargine (BASAGLAR KWIKPEN) 100 UNIT/ML Subcutaneous Solution Pen -injector Inject 35 Units beneath the skin TWICE DAILY. Insulin Pen Needle (1ST TIER UNIFINE PENTIPS) 31G X 5 MM Does not apply Misc 1 Each by Injection route FIVE TIMES DAILY. Dx Z79.4 Lancets (ONETOUCH DELICA PLUS [id number]) Does not apply Misc 1 FOUR TIMES A DAY DX: DIABETES MELLITUS LYRICA 100 MG Oral Cap Take 2 Caps by mouth TWICE DAILY. Max Daily Amount : 400 mg. mometasone (ELOCON) 0.1 % Apply externally Solution 1 Appl by Topical route THREE TIMES PER WEEK. Apply to lesion on the scalp Nystatin [id number] UNIT/GM Apply externally Powder 0.0001 g by Apply externally route TWICE DAILY. Affected area Omeprazole 40 MG Oral CAPSULE DELAYED RELEASE Take 1 Cap by mouth DAILY. polyethylene glycol (MIRALAX) Oral Powder Take 17 g by mouth DAILY NEEDED (constipation). pregabalin (LYRICA) 100 MG Oral Cap Take 2 Caps by mouth TWICE DAILY. Max Daily Amount: 400 mg. QC NATURAL VEGETABLE LAXATIVE 8.6 MG Oral Tab TAKE 2 TABLETS BY MOUTH TWICE DAILY. DX: CONSTIPATION torsemide (DEMADEX) 10 MG Oral Tab Take 1 Tab by mouth DAILY. No current facility-administered medications for this visit. Patient Active Problem List Diagnosis Date Noted Pedal edema 11/05/2018 Onset 2017 - Does not have right sided Heart failure Type 1 diabetes mellitus with diabetic neuropathy ([facility]) 11/05/2018 Chronic respiratory failure with hypoxia ([facility]) 11/05/2018 Former smoker 11/05/2018 Quit 2018 Resides in long-term care facility 05/29/2018 Type 2 diabetes mellitus without complication, with long-term current use of insulin ([facility]) 01/24/2017 Anxiety 03/01/201610/12 Will refill klonopin in 2 months for 2 more months- ( follow up in december ) Generalized anxiety disorder 07/07/2015 [facility] hospital stay behavior[facility] health unit twice [facility] - JOSEPH (obstructive sleep apnea) "I never went to sleep" on polysomnogram in 2006, repeat home testing in 2010 showed AHI 9.1 with 10 minutes of desaturation, referred for auto-CPAP NAFLD (nonalcoholic fatty liver disease) 12/01/[address] scan 2012, borderline AST Morbid obesity (HCC) 02/06/2012 Macular degeneration 04/13/2010 IBS (irritable bowel syndrome) 07/25/2009 Neuropathic Pain Syndrome Pure hypercholesterolemia 06/17/2009 Per medical records of [facility], Dr. Delgado. GERD (gastroesophageal reflux disease) 06/17/2009 Per medical [facility] of [facility], Dr. Delgado. Osteoarthritis of knee Chronic pain neuropathic pain syndrome, Dr. Stanley Diabetes mellitus ([facility]) Hypertension Colon polyp Dr. Silver COPD (chronic obstructive pulmonary disease) ([facility]) Oxygen through [facility] [employer] Family History Problem Relation Age of Onset Cancer Mother pancreatic Stroke Mother High Cholesterol Brother Cancer Brother lung No cardiopulmonary symptoms No upper or lower GI complaints No urinary tract symptoms. No bruising/ bleeding. No neurological complaints . No insomnia.+ . Social History Tobacco Use Smoking status: Former Smoker Packs/day: 1.50 Years: 40.00 Pack years: 60.00 Types: Cigarettes Smokeless tobacco: Never Used Substance Use Topics Alcohol use: No Alcohol/week: 0.0 standard drinks Drug use: No OBJECTIVE: BP 122/70 (BP Location: Right arm, Patient Position: Sitting) | Pulse 64 | Temp 96.7 F (35.9 C) (Tympanic) | Ht 5' 3" (1.6 m) | Wt 272 lb 3.2 oz (123.5 kg) | SpO2 93% | BMI 48.22 kg/m. Heent neg Neck no JVD, thyromegaly or bruit Lungs Clear CV rrr Abd soft, nontender, no organomegaly Ext no edema; no lesions; pulses intact Neuro: intellect intact ; motor including gait unremarkable A/P ICD-9-CM ICD-10-CM 1. Essential hypertension 401.9 I10 2. Chronic obstructive pulmonary disease, unspecified COPD type ([facility]) 496 J44.9 3. Venous stasis dermatitis of both lower extremities 454.1 I87.2 4. JOSEPH (obstructive sleep apnea) 327.23 G47.33 5. Pedal edema 782.3 R60.0 6. Type 2 diabetes mellitus without complication, with long-term current use of insulin ([facility]) 250.00E11.9 V58.67 Z79.4 Patient Instructions Plan 1. increase twice daily basalgar to 44 units - Cut back if blood sugar getting below 100 2. Continue torsemide 10 mg daily - no adjustment necessary - 3. Compression stockings medically necessary - wear every day AUTHOR: Tia Henriquez MD 13:58 09/14/2019 documented in this encounter Plan of Treatment Date Type Specialty Care Team Description 10/15/2019 Office Visit Internal Medicine Tia Henriquez MD [address] [place] [address] [phone] Health Maintenance Due Date Last Done Comments FOOT EXAM 1962 PAP SMEAR 06/06/2010 06/06/2009 (Declined), 08/26/2006, 08/26/2006, Additional history exists MAMMOGRAM (SCREENING) 07/14/2011 07/14/2010, 04/26/2009 MEDICARE ANNUAL WELLNESS 11/22/2011 11/21/2010 VISIT Colonoscopy 07/23/2012 07/23/2009, 07/25/2006, 06/06/2006 DTaP/Tdap/Td Vaccines (2 - 12/06/2014 12/06/2004 Tdap) URINE MICROALBUMIN 09/24/2017 09/24/2016, 01/18/2015 HEMOGLOBIN A1C 12/03/2019 09/03/2019, 09/03/2017, 05/27/2017, Additional history exists DEPRESSION SCREENING 02/06/2020 02/05/2019 FALL RISK ASSESSMENT 02/06/2020 02/05/2019, 02/05/2019 LIPID DISORDER SCREENING 02/11/2020 02/10/2019, 09/03/2017, 09/03/2017, Additional history exists ZOSTER IMMUNIZATION SERIES 07/10/2020 Postponed from (1 of 2) 1994 (Vaccine not available) OSTEOPOROSIS SCREENING 12/27/2020 12/27/2010, 07/06/2009 Diabetic Eye Exam 06/09/2021 06/09/2019, 06/09/2019, 06/09/2019 PNEUMOCOCCAL 65+YRS Completed 06/04/2017, 05/03/2011 INFLUENZA VACCINE Completed 05/07/2019, 06/04/2017, 05/15/2016, Additional history exists HEPATITIS A IMMUNIZATION Aged Out No longer eligible SERIES based on patient's age to complete this topic HPV IMMUNIZATION SERIES Aged Out No longer eligible based on patient's age to complete this topic MENINGOCOCCAL VACCINE IMM Aged Out No longer eligible based on patient's age to complete this topic documented as of this encounter Goals Goal Patient Goal Associated Recent Patient-Stated? Author Type Problems Progress Blood Pressure Blood Pressure 122/70 No Crepet, < 140/90 (09/14/2019 MD Tia 1:16 PM EST) Note: This is an individualized treatment (blood pressure) goal for Sabine Mullins: Displayed above (on the left) is your goal for blood pressure control. Your most recent blood pressure is also shown above, on the right. You should try to achieve blood pressures that are lower than your goal listed above (on the left). Smoking Cessation COPD No Tia Henriquez MD Note: This is an individualized treatment (COPD) goal for Sabine Mullins: Quit smoking immediately! Your provider has information and resources that may help you to quit. Glycohemoglobin A1c < 7.0 Diabetes 9.2 (09/03/2019 8:34 AM No Tia Henriquez MD EST) Note: This is an individualized treatment (diabetes control, HgbA1C) goal for Sabine Mullins: Displayed above is your progress towards your HgbA1C goal. Your goal is shown above (on the left); your most recent HgbA1C is shown on the right. Note that lower numbers are better. Weight loss vs. 18 mo max Lifestyle 3 (09/14/2019 1:16 PM EST) No Tia Henriquez MD (lbs) >= 10 Note: This is an individualized lifestyle goal for Sabine Mullins: Your body mass index (BMI) is more than 30. You should lose weight. A reasonable starting goal is to lose 10 pounds. Displayed above is how many pounds you have lost thus far towards your 10 pound weight loss goal. Keep immunizations current Lifestyle Tia Velasquez MD Note: This is an individualized lifestyle goal for Sabine Mullins: Please be sure to keep up-to-date on recommended immunizations. For example, this would include a yearly influenza vaccine. Immunization status can be seen by looking at the Health Maintenance sections of your [facility], Plan of Care, and any After Visit Summaries. Take all prescribed medications as directed Self-management No Tia Henriquez MD Note: This is an individualized self-management goal for Sabine Mullins: Please take all prescribed medications as directed. 1. Do not skip doses. If you cannot afford your medications, talk with your doctor. 2. Use a pill reminder system such as a pill box if needed. Your pharmacist can help you with this. 3. Contact your Pharmacy 5 days before your medication runs out. If you cannot take your medications for any reasons, talk with your doctor. 4. Please bring all of your medication bottles and inhalers (or a list of all your medications/inhalers) with you to every visit. Potential barriers to meeting all of your care plan goals will continue to be addressed on an ongoing basis. documented as of this encounter Results Not on filedocumented in this encounter Visit Diagnoses Diagnosis Essential hypertension Unspecified essential hypertension Chronic obstructive pulmonary disease, unspecified COPD type (HCC) Venous stasis dermatitis of both lower extremities JOSEPH (obstructive sleep apnea) Obstructive sleep apnea (adult) (pediatric) Pedal edema Edema Type 2 diabetes mellitus without complication, with long-term current use of insulin (HCC) documented in this encounter Insurance Payer Benefit Plan / Subscriber ID Effective Dates Phone Address Type Group AETNA MEDICARE AETNA MEDICARE xxxxxxxx 2019-Present [employer] ADVANTAGE (Work) documented as of this encounter
--- OUTSIDE RECORDS SUMMARY | 2019-09-17 12:45 | XMS REPORT ---
:1945 Author Organization [facility] Care Team Providers Name Role Phone Unavailable [...]
--- OUTSIDE RECORDS SUMMARY | 2019-09-17 12:45 | XMS REPORT | Summary of Care ---
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 [employer] Reason for Visit Reason Comments Follow Up Lab work completed Encounter Details Date Type Department Care Team Description 09/10/2019 Office Visit [facility] Tia Henriquez MD Type 2 diabetes mellitus without complication, with long-term current use of insulin (HCC) (Primary Dx); Medicine [address] Chronic obstructive pulmonary disease, unspecified COPD type ([facility]); [address] [place] [address] Venous stasis dermatitis of both lower extremities; [place] [address] Essential hypertension; [phone] JOSEPH (obstructive sleep apnea); Pedal edema; Other chronic pain; Chronic pain syndrome Allergies Active Allergy Reactions Severity Noted Date Comments Paroxetine Hydrochloride Other 06/06/2009 Coughing,sneezing documented as of this encounter (statuses as of 09/10/2019) Medications Medication Sig Dispensed Refills Start End [...] (wheezing). s: COPD (chronic obstructive pulmonary disease) ([facility]) emollient Apply 1 Appl by 113 g [...] EVERY 7 DAYS. Subcutaneous Solution Pen-injector Nystatin 819924 0.0001 g by 60 g 5 Active UNIT/GM Apply Apply externally 9 externally route TWICE PowderIndications: DAILY. Affected Candidiasis, area intertrigo Glucose Blood In 1 Strip by In 300 Strip 3 Active Vitro Vitro route FOUR 9 StripIndications: TIMES DAILY. Dx Type 1 diabetes Z79.4 One Touch. mellitus with diabetic neuropathy (HCC) doxycycline Take 100 mg by 20 Tab 0 Active (VIBRAMYCIN) 100 mouth TWICE 0 MG Oral DAILY. TabIndications: Cellulitis of right lower extremity bacitracin 500 Apply to wound 1 Tube [...] Active DELICA PLUS DAY DX: DIABETES 0 [id number]) Does MELLITUS not apply MiscIndications: Type 1 diabetes mellitus with diabetic neuropathy (HCC) torsemide Take 1 Tab by 60 Tab 1 Active (DEMADEX) 10 MG mouth DAILY. 0 Oral TabIndications: Pedal edema pregabalin Take 2 Caps by 120 Cap 2 Active (LYRICA) 100 MG mouth TWICE 0 Oral DAILY. Max Daily CapIndications: Amount: 400 mg. Other chronic pain pregabalin Take 1 Cap by 90 Cap 3 09/10/19 Discontinued (LYRICA) 100 MG mouth THREE 9 20 (Reorder) Oral TIMES DAILY. Max CapIndications: Daily Amount: Other chronic pain 300 mg. documented as of this encounter (statuses as of 09/10/2019) Active Problems Problem Noted Date Pedal edema 11/05/2018 Overview: Onset 2017 - Does not have right sided Heart failure Type 1 diabetes mellitus with diabetic neuropathy 11/05/2018 Chronic respiratory failure with hypoxia 11/05/2018 Former smoker 11/05/2018 Overview: Quit 2018 Resides in intermediate designer care facility 05/29/2018 Type 2 diabetes mellitus without complication, with long-term current use 08/2016 of insulin Anxiety 03/01/2016 Overview: 10/12 Will refill klonopin in 2 months for 2 more months- ( follow up in december ) Generalized anxiety disorder 07/07/2015 Overview: [facility] hospital stay behaviorall health unit twice [facility] - NAFLD (nonalcoholic fatty liver disease) 12/01/2013 Overview: Seen on CT scan 2012, borderline AST Morbid obesity 02/06/2012 Macular degeneration 04/13/2010 IBS (irritable bowel syndrome) 07/25/2009 Pure hypercholesterolemia 06/17/2009 Overview: [facility], Dr. Delgado. GERD (gastroesophageal reflux disease) 06/17/2009 Overview: [facility] Dr. Delgado. Osteoarthritis of knee Chronic pain [...] as of this encounter (statuses as of 09/10/2019) Resolved Problems Problem Noted Date Resolved Date Nasal septal deviation 07/25/2009 12/16/2014 Insomnia 06/06/2009 01/03/2012 LBP (low back pain) 12/16/2014 Tobacco use disorder 11/05/2018 Overview: Quit 2017 Anxiety disorder 12/16/2014 documented as of this encounter (statuses as of 09/10/2019) Immunizations Name Administration Dates Next Due Influenza [...] Sign Reading Time Taken Comments Blood Pressure 126/68 09/10/2019 9:27 AM EST Pulse 74 09/10/2019 9:27 AM EST Temperature 36.3 09/10/2019 9:27 AM C (97.4 EST F) Respiratory Rate - - Oxygen Saturation 95% 09/10/2019 9:27 AM EST Inhaled Oxygen Concentration - - Weight 124.8 kg (275 lb 3.2 oz) 09/10/2019 9:27 AM EST Height 160 cm (5' 3") 09/10/2019 9:27 AM EST Body Mass Index 48.75 09/10/2019 9:27 AM EST documented in this encounter Patient Instructions Patient InstructionsTia Henriquez MD - 09/10/2019 9:20 AM ESTPlan Pedal edema 1. Use the mechanical stockings daily - 2. Change furosemide to torsemide 10 mg - - If you do not lose 3-5 lbs in the first weeks - increase to 20 mg If the weight goes down > 5 lbs in 3 days hold the diuretic 3. Weight daily - 4. Limit the water / fluid intake - Diabetes - No change in plan for now - Poor numbers may be secondary to the stress of the stasis dermaitis Diet and exercise - Limit the carbs documented in this encounter Progress Notes Tia Henriquez MD - 09/10/2019 9:20 AM EST NAME:Sabine Mullins 1945: 1945 ENC Date: 09/10/2019 CC: Chief Complaint Patient presents with Follow Up Lab work completed Sabine Mullins is a 74-y.o. female complex medical patient Here for interval follow up 1. Diabetes - Out of control this interval - Stress of stasis dermatitis ? - chks blood sugar daily Taking twice daily basalgar and trulicity - Has not seen benefit of trulicitiy Discussed avoiding concentrated sweets / Eye and foot care - reviewed 2. Copd - 02 dependent - uses oxygen chroniicallyl 3. Chronic pedal edema - Worse of late - Put on antibiotic at previous visit for increased redness of the legs - Redness better ? No open woulds - swelling not improved- Sleeping with legs up in recliner - Also using mechainical compression stockings 2x week Has seen vascular surgeon who recommended conservative care only at that time- ( was still smoking) 4. Obsructive sleep apnea- Using sleep equipment regularly 5. Taking high dose lyrica for leg / foot pain - not controlling pain Insurance not covering -says that only VASQUEZ works - revieweed with patient - Cannot increase dose on 400 mg already Will work harder on decreasing the swelling of the legs Current Outpatient Medications Medication Sig Acetaminophen (TYLENOL) [...] EVERY 4 HOURS NEEDED DX: DRY NARES doxycycline (VIBRAMYCIN) 100 MG Oral Tab Take 100 mg by mouth TWICE DAILY. Dulaglutide (TRULICITY) 1.5 MG/0.5ML Subcutaneous Solution Pen-injector [...] DAILY. Dx Z79.4 Lancets (ONETOUCH DELICA PLUS [id number]) Does not apply Misc 1 FOUR TIMES A DAY DX: DIABETES MELLITUS LYRICA 100 MG Oral Cap Take 2 Caps by mouth TWICE DAILY. Max Daily Amount : 400 mg. mometasone (ELOCON) 0.1 % Apply externally Solution 1 Appl by Topical route THREE TIMES PER WEEK. Apply to lesion on the scalp Nystatin [id number] UNIT/GM Apply externally Powder 0.0001 g by [...] 1 diabetes mellitus with diabetic neuropathy (HCC) 11/05/2018 Chronic respiratory failure with hypoxia (HCC) 11/05/2018 Former smoker 11/05/2018 Quit 2018 Resides in residential care facility 05/29/2018 Type 2 diabetes mellitus without complication, with long-term current use of insulin (HCC) 01/24/2017 Anxiety 03/01/201610/12 Will refill klonopin in 2 months for 2 more months- ( follow up in december ) Generalized anxiety disorder 07/07/2015 [facility] hospital stay behaviorall health unit twice [facility] - JOSEPH (obstructive sleep apnea) "I [...] Per medical records of [facility], Dr. Delgado. GERD (gastroesophageal reflux disease) 06/17/2009 Per medical records of [facility], Dr. Delgado. Osteoarthritis of knee Chronic pain neuropathic pain syndrome, Dr. Stanley Diabetes mellitus ([facility]) Hypertension Colon polyp Dr. Silver COPD (chronic obstructive pulmonary disease) ([facility]) Oxygen through [employer] Family History [...] Alcohol/week: 0.0 standard drinks Drug use: No Results for orders placed or performed in visit on 09/03/19 GLYCOHEMOGLOBIN A1C Result Value Ref Range Glycohemoglobin A1C 9.2 (H) <=5.6 % BASIC METABOLIC PANEL Result Value Ref Range Glucose 140 (H) 70 - 99 mg/dl BUN 22 (H) 7 - 17 mg/dl Creatinine 1.3 (H) 0.7 - 1.2 mg/dl Sodium 140 134 - 145 mmol/L Potassium 4.2 3.5 - 5.1 mmol/L Chloride 101 98 - 107 mmol/L CO2 31 (H) 22 - 30 mmol/L Calcium 8.2 (L) 8.3 - 10.1 mg/dl eGFR 40 See Interpretation Below ml/min/1.73ml Sq BUN/Creatinine Ratio 17 6 - 22 RATIO Anion Gap 8 3 - 11 mmol/L OBJECTIVE: Wearing oxygen BP 126/68 (BP Location: Left arm, Patient Position: Sitting) | Pulse 74 | Temp 97.4 F (36.3 C) (Tympanic) | Ht 5' 3" (1.6 m) | Wt 275 lb 3.2 oz (124.8 kg) | SpO2 95% | BMI 48.75 kg/m . Heent neg Neck no JVD, thyromegaly or bruit Lungs Clear CV rrr Abd soft, nontender, no organomegaly Ext Scaly - 4+ edema / dusky color - Neuro: intellect intact ; A/P ICD-9-CM ICD-10-CM 1. Type 2 diabetes mellitus without complication, with long-term current use of insulin ([facility]) 250.00E11.9 MICROALBUMIN, RANDOM URINE W/ CREATININE V58.67 Z79.4 GLYCOHEMOGLOBIN A1C COMPREHENSIVE METABOLIC PANEL LIPID PROFILE 2. Chronic obstructive pulmonary disease, unspecified COPD type ([facility]) 496 J44.9 3. Venous stasis dermatitis of both lower extremities 454.1 I87.2 4. Essential hypertension 401.9 I10 5. JOSEPH (obstructive sleep apnea) 327.23 G47.33 6. Pedal edema 782.3 R60.0 torsemide (DEMADEX) 10 MG Oral Tab 7. Other chronic pain 338.29 G89.29 pregabalin (LYRICA) 100 MG Oral Cap More than 50% of the physician/patient and or family encounter was spent with counseling and coordination of care. Total visit time involved was 55 minutes. Patient Instructions Plan Pedal edema 1. Use the mechanical stockings daily - 2. Change furosemide to torsemide 10 mg - - If you do not lose 3-5 lbs in the first weeks - increase to 20 mg If the weight goes down > 5 lbs in 3 days hold the diuretic 3. Weight daily - 4. Limit the water / fluid intake - Diabetes - No change in plan for now - Poor numbers may be secondary to the stress of the stasis dermaitis Diet and exercise - Limit the carbs AUTHOR: Tia Henriquez MD 15:08 09/10/2019 documented in this encounter Plan of Treatment Date Type Specialty Care Team Description 10/15/2019 Office Visit Internal Medicine Tia Henriquez MD [address] [place] [address] [phone] Name Type Priority Associated Diagnoses Order Schedule MICROALBUMIN, RANDOM URINE Lab Routine Type 2 diabetes 1 Occurrences starting W/ CREATININE mellitus without 09/09/2019 until complication, with 03/07/2020 long-term current use of insulin ([facility]) GLYCOHEMOGLOBIN A1C Lab Routine Type 2 diabetes Expected: 09/09/2019 mellitus without (Approximate), complication, with Expires: 03/07/2020 long-term current use of insulin ([facility]) COMPREHENSIVE METABOLIC Lab Routine Type 2 diabetes Expected: 09/09/2019 PANEL mellitus without (Approximate), complication, with Expires: 03/07/2020 long-term current use of insulin ([facility]) LIPID PROFILE Lab Routine Type 2 diabetes Expected: 09/09/2019 mellitus without (Approximate), complication, with Expires: 03/07/2020 long-term current use of insulin (HCC) Health Maintenance Due Date Last Done Comments [...] Type Problems Progress Blood Pressure Blood Pressure 126/68 No Martinez, < 140/90 (09/10/2019 MD Tia 9:27 AM EST) Note: This is an individualized treatment [...] Weight loss vs. 18 mo max Lifestyle 0 (09/10/2019 9:27 AM EST) No Tia Henriquez MD (lbs) >= [...] Take all prescribed medications as directed Self-management Tia Velasquez MD Note: This is an individualized self-management [...] filedocumented in this encounter Visit Diagnoses Diagnosis Type 2 diabetes mellitus without complication, with long-term current use of insulin (HCC) Chronic obstructive pulmonary disease, unspecified COPD type (HCC) Venous stasis dermatitis of both lower extremities Essential hypertension Unspecified essential hypertension JOSEPH (obstructive sleep apnea) Obstructive sleep apnea (adult) (pediatric) Pedal edema Edema Other chronic pain Chronic pain syndrome documented in this encounter Insurance Payer Benefit Plan / Subscriber ID Effective Dates Phone Address Type Group AETNA MEDICARE AETNA MEDICARE xxxxxxxx 2019-Present [employer] ADVANTAGE ADVANTAGE (Work) documented as of this encounter
--- OUTSIDE RECORDS SUMMARY | 2019-09-17 12:46 | XMS REPORT | Continuity of Care Document ---
:1945 External Reference #:[id number] Author Name Christopher Chao M.D. Address [address] [place] [address] Care Team Providers Name Role Phone uJan Delgado M.D. - Internal Care Team Information [facility] Tia Henriquez M.D. - Internal Medicine Care Team Information [employer] Problems Active Problems Provider Date Diabetes mellitus Onset: Osteoarthritis Onset: Note: NECK KNEES FEET Dizziness Onset: Hypoglycemia Christopher Chao M.D. Onset: 06/09/2019 Insomnia Christopher Chao M.D. Onset: 06/09/2019 Vitreous degeneration Christopher Chao M.D. Onset: 06/09/2019 Combined form of senile cataract Christopher Chao M.D. 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 Onset: of right eye Social History Type Date Description Comments Sex Unknown ETOH Use Denies alcohol use Tobacco Use Start: Unknown Patient is a current smoker, smokes every day Recreational Drug Use Denies Drug Use Smoking Status Reviewed: 07/30/19 Patient is a current smoker, smokes every day Allergies, Adverse Reactions, Alerts Active Allergies Reaction Severity Comments Date Paxil 01/13/2015 Medications Active Medications SIG Qnty Indications Ordering Provider Date Ciprofloxacin HCL instill one drop 5ml Christopher Chao, 07/06/2019 0.3% in the right eye M.D. Solution three times a day, start the day before surgery Ketorolac Tromethamine use one drop in 10ml Christopher AlbaTravis Chao, 07/06/2019 0.5% the right eye M.D. Solution three times a day, start the day before surgery Prednisolone Acetate 1 drops right eye 5ml Christopher AlbaTravis Chao, 07/06/2019 1% three times a M.D. Suspension day. taper as directed Systane 1 drop every 2 10ml Christopher Chao, 07/06/2019 0.4-0.3% Solution hours while awake M.D. starting after surgery right eye Glucose Unknown 4gm Chewtabs Trulicity Unknown 1.5mg/0.5ML Solution Pen-Inject Basaglar Kwikpen Unknown 100Unit/ML Solution Pen-Inject Ipratropium [place] Unknown 0.02% Solution Gas Relief Unknown 180mg Capsules Calcium Unknown 250mg Capsules Bisacodyl Unknown Powder Albuterol Sulfate Unknown (2.5mg/3ML) 0.083% Nebulizer Acetaminophen ER Unknown 650mg Tablets ER Senna Unknown 8.8mg/5ML Syrup Melatonin ER 1 tab every day Unknown 3mg Tablets ER by mouth Furosemide Unknown 20mg Tablets Atorvastatin Calcium Unknown 20mg Tablets Aspirin Adult Low Unknown Strength 81mg Chewtabs Advair Diskus Unknown 100-50mcg/Dose Aerosol Lyrica Unknown 50mg Capsules Clonazepam Unknown 0.5mg Tablets Metformin HCL Unknown 500mg Tablets Omeprazole-Sodium Unknown Bicarbonate 40-1100mg Capsules Lisinopril Unknown 2.5mg Tablets Avapro Unknown 75mg Tablets Immunizations Description No Information Available Vital Signs Description No Information Available Results Description No Information Available Procedures Date Code Description Status 07/06/2019 90578 Ophthalmic Biometry Completed 07/06/2019 06012 Ophthalmic Biometry Completed 07/06/2019 61953 Est Patient Intermediate Exam Completed 07/06/2019 524 C-Pap Goggles Completed 06/09/2019 26081 Scanning Computerized Opthalmic Diagnostic Posterior Seg Completed Retina 06/09/2019 42347 New Patient Comprehensive Exam Completed Medical Devices Description No Information Available Encounters Description No Information Available Assessments Date Code Description Provider 07/30/2019 H25.812 Combined forms of age-related cataract, Christopher Chao M.D. 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 complications 07/30/2019 Z96.1 Presence of intraocular lens Christopher Choa M.D. 07/30/2019 H35.3114 Nonexudative age-related macular Christopher Chao M.D. degeneration, right eye, advanced atrophic with subfoveal involvement 07/06/2019 H25.811 Combined forms of age-related cataract, Christopher Chao M.D. 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 complications 07/06/2019 H25.812 Combined forms of age-related cataract, Christopher Chao M.D. left eye 07/06/2019 H35.3121 Nonexudative age-related macular Christopher Chao M.D. degeneration, left eye, early dry stage 06/09/2019 H35.3114 Nonexudative age-related macular Christopher Chao M.D. degeneration, right eye, advanced atrophic with subfoveal involvement 06/09/2019 H35.3121 Nonexudative age-related macular Christopher Chao M.D. degeneration, left eye, early dry stage 06/09/2019 H25.813 Combined forms of age-related cataract, Christopher Chao M.D. bilateral 06/09/2019 H43.813 Vitreous degeneration, bilateral Christopher Chao M.D. 06/09/2019 E11.9 Type 2 diabetes mellitus without Christopher Chao M.D. complications Plan of Treatment Future Appointment(s):08/21/2019 8:30 am - Sweetie Bonilla O.D. at [facility], 08/06/2019 8:30 am - Christopher Chao M.D. at [facility] , 08/05/2019 7:00 am - Christopher Chao M.D. at [facility], 2018 - Christopher Chao M.D.H25.812 Combined forms of age-related cataract, left eyeComments:Smoking can increase the risk of developing or worsening any eye related disease, as well as affect your overall health. If you are a smoker , we strongly recommend that you quit.If you are not a smoker, we strongly recommend that you do not start. Dense cataract in the left eye.Follow up:For surgery. Please keep post op appointments as scheduled.H35.3121 Nonexudative age -related macular degeneration, left eye, early dry etdkbJ85.9 Type 2 diabetes mellitus without xhcjupwblrarsH66.1 Presence of intraocular lensComments:The artifical lens implant in your right eye appears to be stable. Since this is the first day after surgery, your right eye is still dilated and the vision will still be slightly blurry. The dilation will go down over the next day or two. Continue taking your eye drops as directed on the surgical calendar. If you have any questions, please call our office.H35.3114 Nonexudative age- related macular degeneration, right eye, advanced atrophic with subfoveal involvement Functional Status Description No Information Available Mental Status Description No Information Available Referrals Description No Information Available
--- OUTSIDE RECORDS SUMMARY | 2019-09-17 12:46 | XMS REPORT | Summary of Care ---
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 Reason for Visit Reason Comments Check Up open sore on R leg, leaking fluids,\\ x4 days Encounter Details Date Type Department Care Team Description 08/27/2019 Office Visit [facility] Bebe Bermeo, Cellulitis of right Practice [employer] lower extremity [address] (Primary Dx) [place] [address] [place] [address] [phone] Allergies Active Allergy Reactions Severity Noted Date Comments Paroxetine Hydrochloride Other 06/06/2009 Coughing,sneezing documented as of this encounter (statuses as of 08/27/2019) Medications Medication Sig Dispensed Refills Start Date End Date Status BASAGLAR KWIKPEN 100 Inject 35 Units 45 mL 1 02/10/2019 Active UNIT/ML Subcutaneous beneath the skin Solution Pen-injector EVERY TWELVE HOURS. Acetaminophen Take 2 Tabs by 100 Cap 3 02/10/2019 Active (TYLENOL) 325 MG Oral mouth EVERY SIX Cap HOURS NEEDED (pain). ADVAIR DISKUS 250-50 Take 1 INHL by 180 Each 3 02/10/2019 Active MCG/DOSE Inhalation inhalation DAILY. AEROSOL POWDER, BREATH ACTIVATED albuterol HFA Take 2 Puffs by 1 Inhaler 5 02/10/2019 Active (VENTOLIN HFA) 108 inhalation EVERY (90 Base) MCG/ACT SIX HOURS NEEDED Inhalation Aero Soln (wheezing). atorvastatin Take 1 Tab by mouth 90 Tab 3 02/10/2019 Active (LIPITOR) 20 MG Oral DAILY. Tab furosemide (LASIX) 20 Take 1 Tab by mouth 90 Tab 3 02/10/2019 Active MG Oral Tab DAILY. Insulin Pen Needle 1 Each by Injection 300 Each 3 02/10/2019 Active (1ST TIER UNIFINE route FIVE TIMES PENTIPS) 31G X 5 MM DAILY. Dx Z79.4 Does not apply Misc mometasone (ELOCON) 1 Appl by Topical 30 mL 2 02/10/2019 Active 0.1 % Apply route THREE TIMES externally PER WEEK. Apply to SolutionIndications: lesion on the scalp Dermatitis Omeprazole 40 MG Oral Take 1 Cap by mouth 90 Cap 3 02/10/2019 Active CAPSULE DELAYED DAILY. RELEASE polyethylene glycol Take 17 g by mouth 578 g 5 02/10/2019 Active (MIRALAX) Oral Powder DAILY NEEDED (constipation). albuterol-ipratropium 3 mL by 270 mL 0 02/10/2019 Active (DUO-NEB) 0.5-2.5 (3) Inhalation-SVN MG/3ML Inhalation route EVERY FOUR SolutionIndications: HOURS NEEDED COPD (chronic (wheezing). obstructive pulmonary disease) ([facility]) Lancets Does not 1 Each by Does not 100 Each 5 02/24/2019 Active apply apply route THREE MiscIndications: Type TIMES DAILY. 1 diabetes mellitus DxE11.9, one touch with diabetic delica, insul dep neuropathy ([facility]) emollient Apply 1 Appl by Topical 113 g 5 04/13/2019 Active externally Cream route DIRECTED. Apply to both legs after shower, for dry legs. Bisacodyl 5 MG Oral Take 1 Tab by mouth 180 Tab 3 05/25/2019 Active Tab EC TWICE DAILY. ASPIRIN LOW DOSE 81 TAKE 1 TABLET BY 100 Tab 4 06/05/2019 Active MG Oral Tab EC MOUTH DAILY DX: PROPHYLAXIS QC NATURAL VEGETABLE TAKE 2 TABLETS BY 120 Tab 4 06/05/2019 Active LAXATIVE 8.6 MG Oral MOUTH TWICE DAILY. Tab DX: CONSTIPATION pregabalin (LYRICA) Take 1 Cap by mouth 90 Cap 3 06/29/2019 Active 100 MG Oral THREE TIMES DAILY. CapIndications: Other Max Daily Amount: chronic pain 300 mg. Insulin Glargine Inject 35 Units 0 Active (BASAGLAR KWIKPEN) beneath the skin 100 UNIT/ML TWICE DAILY. Subcutaneous Solution Pen-injector DEEP SEA NASAL SPRAY USE 2 SPRAYS INTO 88 mL 2 07/22/2019 Active 0.65 % Nasal Solution EACH NOSTRIL EVERY 4 HOURS NEEDED DX: DRY NARES LYRICA 100 MG Oral Take 2 Caps by 120 Cap 0 08/04/2019 Active Cap mouth TWICE DAILY. Max Daily Amount: 400 mg. clonazePAM (KLONOPIN) Take 1 Tab by mouth 60 Tab 0 08/04/2019 Active 0.5 MG Oral Tab EVERY TWELVE HOURS NEEDED (anxiety). Max Daily Amount: 1 mg. Dulaglutide Inject 1 Appl 6 mL 0 08/05/2019 Active (TRULICITY) 1.5 beneath the skin MG/0.5ML Subcutaneous EVERY 7 DAYS. Solution Pen-injector Nystatin [id number] 0.0001 g by Apply 60 g 5 08/06/2019 Active UNIT/GM Apply externally route externally TWICE DAILY. PowderIndications: Affected area Candidiasis, intertrigo Glucose Blood In 1 Strip by In Vitro 300 Strip 3 08/14/2019 Active Vitro route FOUR TIMES StripIndications: DAILY. Dx Z79.4 One Type 1 diabetes Touch. mellitus with diabetic neuropathy (HCC) doxycycline Take 100 mg by 20 Tab 0 08/27/2019 Active (VIBRAMYCIN) 100 MG mouth TWICE DAILY. Oral TabIndications: Cellulitis of right lower extremity bacitracin 500 Apply to wound 1 Tube 0 08/27/2019 Active UNIT/GM Apply twice daily for 10 externally days. OintmentIndications: Cellulitis of right lower extremity documented as of this encounter (statuses as of 08/27/2019) Active Problems Problem Noted Date Pedal edema 11/05/2018 Overview: Onset 2017 - Does not have right sided Heart failure Type 1 diabetes mellitus with diabetic neuropathy 11/05/2018 Chronic respiratory failure with hypoxia 11/05/2018 Former smoker 11/05/2018 Overview: Quit 2018 Resides in group home care facility 05/29/2018 Type 2 diabetes mellitus without complication, with long-term current use 08/2016 of insulin Anxiety 03/01/2016 Overview: 10/12 Will refill klonopin in 2 months for 2 more months- ( follow up in december ) Generalized anxiety disorder 07/07/2015 Overview: [facility] hospital stay [facility] - NAFLD (nonalcoholic fatty liver disease) 12/01/2013 Overview: Seen on CT scan 2013, borderline AST Morbid obesity 02/06/2012 Macular degeneration 04/13/2010 IBS (irritable bowel syndrome) 07/25/2009 Pure hypercholesterolemia 06/17/2009 Overview: Per medical records of [facility], Dr. Delgado. GERD (gastroesophageal reflux disease) 06/17/2009 Overview: Per medical records of [facility], Dr. Delgado. Osteoarthritis of knee Chronic pain [...] as of this encounter (statuses as of 08/27/2019) Resolved Problems Problem Noted Date Resolved Date Nasal septal deviation 07/25/2009 12/16/2014 Insomnia 06/06/2009 01/03/2012 LBP (low back pain) 12/16/2014 Tobacco use disorder 11/05/2018 Overview: Quit 2018 Anxiety disorder 12/16/2014 documented as of this encounter (statuses as of 08/27/2019) Immunizations Name Administration Dates Next Due Influenza [...] Sign Reading Time Taken Comments Blood Pressure 154/72 08/27/2019 1:50 PM EST Pulse 83 08/27/2019 1:50 PM EST Temperature - - Respiratory Rate - - Oxygen Saturation 96% 08/27/2019 1:50 PM EST Inhaled Oxygen Concentration - - Weight 122.9 kg (271 lb) 08/27/2019 1:50 PM EST Height 160 cm (5' 3") 08/27/2019 1:50 PM EST Body Mass Index 48.01 08/27/2019 1:50 PM EST documented in this encounter Patient Instructions Patient InstructionsBebe Bean NP - 08/27/2019 2:00 PM ESTYou have been prescribed doxycycline - take one tablet twice daily for 10 days. ? This drug will make you more susceptible to sunburn - be sure to wear sunscreen when exposed to the sun or outside. ? Take with food. Don't take with milk. Keep the wound clean and dry. You can use bacitracin once or twice daily on the small open area on your leg. I have advised you return for a wound recheck but you have opted to keep an eye on this at home. Please return if you the area is worsening or just not getting better - including increased swelling, redness, drainage, or fevers. You have been prescribed an antibiotic for treatment of your condition. It is important to rememberthat antibiotics treat bacterial infections. In order for them to be effective - you must take ALL of the medication and take it exactly as prescribed. FINISH THE MEDICATION - even if you are feelingbetter. Antibiotics can cause stomach upset and diarrhea. You can help decrease these symptoms by also taking a probiotic while using the medication (Align, Culturelle or the like). Take with food if recommended by the pharmacist. If you are not feeling better in 3-5 days - call or return to the office. documented in this encounter Progress Notes Bebe Bean NP - 08/27/2019 2:00 PM EST PATIENT: Sabine Mullins : 1945 DATE OF SERVICE: 08/27/2019 CHIEF COMPLAINT: Chief Complaint Patient presents with Check Up open sore on R leg, leaking fluids,\\ x4 days Subjective HISTORY OF PRESENT ILLNESS: Sabine Mullins is a 74-y.o. female. HPI Patient here for lower extremity weeping edema. PMH significant for type 2 dm, morbid obesity, copd, hypertension, non alcoholic fatty liver. Right lower extremity open wound for 3-4 days, oozing. Drainage started out watery, then thicker. Nurse practitioner at [facility] wanted her to get checked out. She believes she scratched her leg and pulled open her skin a few days ago and the redness and swelling in leg started after that. No fevers, body aches malaise or chills. Past Medical History: Diagnosis Date Anxiety disorder Chronic pain neuropathic pain syndrome, Dr. Stanley Colon polyp Dr. Silver, mulitple tubular adenomas 11/02 COPD (chronic obstructive pulmonary disease) (HCC) empiric diagnosis, active smoker, unable to quit; restrictive PFTs 12/03: FEV1 70%, ELR0CAS 104%, [id number] 80%, no change with ANDREWS Diabetes mellitus (HCC) Hypertension LBP (low back pain) Macular degeneration 04/13/2010 Neuropathic Pain Syndrome JOSEPH (obstructive sleep apnea) "I never went to sleep" on polysomnogram in 2006, repeat home testing in 2010 showed AHI 9.1 with 10 minutes of desaturation, referred for auto-CPAP Osteoarthritis of knee Patient non adherence Postmenopausal Seasonal allergies nasal IHS previously Tobacco use disorder Family History Problem Relation Age of Onset Cancer Mother pancreatic Stroke Mother High Cholesterol Brother Cancer Brother lung Current Outpatient Medications Medication Sig Acetaminophen (TYLENOL) [...] route FIVE TIMES DAILY. Dx Z79.4 Lancets Does not apply Misc 1 Each by Does not apply route THREE TIMES DAILY. DxE11.9, one touch delica, insul dep LYRICA 100 MG Oral Cap Take 2 Caps by mouth TWICE DAILY. Max Daily Amount : 400 mg. mometasone (ELOCON) 0.1 % Apply externally Solution 1 Appl by Topical route THREE TIMES PER WEEK. Apply to lesion on the scalp Nystatin [id number] UNIT/GM Apply externally Powder 0.0001 g by Apply externally route TWICE DAILY. Affected area Omeprazole 40 MG Oral CAPSULE DELAYED RELEASE Take 1 Cap by mouth DAILY. polyethylene glycol (MIRALAX) Oral Powder Take 17 g by mouth DAILY NEEDED (constipation). pregabalin (LYRICA) 100 MG Oral Cap Take 1 Cap by mouth THREE TIMES DAILY. Max Daily Amount: 300 mg. QC NATURAL VEGETABLE LAXATIVE 8.6 MG Oral Tab TAKE 2 TABLETS BY MOUTH TWICE DAILY. DX: CONSTIPATION No current facility-administered medications for this visit. Allergies Allergen Reactions Paxil [Paroxetine Hydrochloride] Other Coughing,sneezing Social History Socioeconomic History Marital status: Single Spouse name: Not on file Number of children: Not on file Years of education: Not on file Highest education level: Not on file Occupational History Not on file Social Needs Financial resource strain: Not on file Food insecurity Worry: Not on file Inability: Not on file Transportation needs Medical: Not on file Non-medical: Not on file Tobacco Use Smoking status: Former Smoker Packs/day: 1.50 Years: 40.00 Pack years: 60.00 Types: Cigarettes Smokeless tobacco: Never Used Substance and Sexual Activity Alcohol use: No Alcohol/week: 0.0 standard drinks Drug use: No Sexual activity: Not Currently Lifestyle Physical activity Days per week: Not on file Minutes per session: Not on file Stress: Not on file Relationships Social connections Talks on phone: Not on file Gets together: Not on file Attends tenriism service: Not on file Active member of club or organization: Not on file Attends meetings of clubs or organizations: Not on file Relationship status: Not on file Intimate partner violence Fear of current or ex partner: Not on file Emotionally abused: Not on file Physically abused: Not on file Forced sexual activity: Not on file Other Topics Concern Back Care Not Asked Bike Helmet Not Asked Blood Transfusions Not Asked Caffeine Concern Not Asked Exercise Not Asked Hobby Hazards Not Asked International Travel Not Asked Service Not Asked Occupational Exposure Not Asked Seat Belt Not Asked Self-Exams Not Asked Sleep Concern No Special Diet No Stress Concern No Weight Concern Yes Comment: max weight = current weight Social History Narrative Lives alone. Daughter in [place]. Retired, on disability. 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 REVIEW OF SYSTEMS: Review of Systems Constitutional: Negative for chills, fever and malaise/fatigue. Cardiovascular: Positive for leg swelling. Negative for chest pain and palpitations. Musculoskeletal: Negative for joint pain and myalgias. Neurological: Negative for tingling and sensory change. Objective PHYSICAL EXAM: VITALS: BP (!) 154/72 (BP Location: Left arm, Patient Position: Sitting) | Pulse 83 | Ht 5' 3" (1.6 m) | Wt 271 lb (122.9 kg) | SpO2 96% | BMI 48.01 kg /m Body mass index is 48.01 kg/m. Physical Exam Vitals signs and nursing note reviewed. Constitutional: General: She is not in acute distress. Appearance: Normal appearance. She is well-developed. Cardiovascular: Rate and Rhythm: Normal rate and regular rhythm. Heart sounds: Normal heart sounds. No murmur. No friction rub. No gallop. Pulmonary: Effort: Pulmonary effort is normal. No respiratory distress. Breath sounds: Normal breath sounds. Musculoskeletal: Right lower leg: She exhibits swelling. Edema present. Left lower leg: She exhibits swelling. Edema present. Comments: Redness and swelling bilat legs, right > left Small open area on right bill - clear discharge. Neurological: Mental Status: She is alert. Psychiatric: Mood and Affect: Mood and affect normal. Speech: Speech normal. Behavior: Behavior normal. Behavior is cooperative. ASSESSMENT / IMPRESSION: ICD-9-CM ICD-10-CM 1. Cellulitis of right lower extremity 682.6 L03.115 doxycycline (VIBRAMYCIN) 100 MG Oral Tab bacitracin 500 UNIT/GM Apply externally Ointment Plan 1. Cellulitis of right lower extremity You have been prescribed doxycycline - take one tablet twice daily for 10 days. ? This drug will make you more susceptible to sunburn - be sure to wear sunscreen when exposed to the sun or outside. ? Take with food. Don't take with milk. Keep the wound clean and dry. You can use bacitracin once or twice daily on the small open area on your leg. I have advised you return for a wound recheck but you have opted to keep an eye on this at home. Please return if you the area is worsening or just not getting better - including increased swelling, redness, drainage, or fevers. You have been prescribed an antibiotic for treatment of your condition. It is important to rememberthat antibiotics treat bacterial infections. In order for them to be effective - you must take ALL of the medication and take it exactly as prescribed. FINISH THE MEDICATION - even if you are feelingbetter. Antibiotics can cause stomach upset and diarrhea. You can help decrease these symptoms by also taking a probiotic while using the medication (Align, Culturelle or the like). Take with food if recommended by the pharmacist. If you are not feeling better in 3-5 days - call or return to the office. - doxycycline (VIBRAMYCIN) 100 MG Oral Tab; Take 100 mg by mouth TWICE DAILY. Dispense: 20 Tab; Refill: 0 - bacitracin 500 UNIT/GM Apply externally Ointment; Apply to wound twice daily for 10 days. Dispense: 1 Tube; Refill: 0 Author: Bebe Bean NP 08/27/2019 16:44 documented in this encounter Plan of Treatment Date Type Specialty Care Team Description 09/03/2019 Lab Internal Medicine 09/10/2019 Office Visit Internal Medicine Tia Henriquez MD [address] [place] [address] [phone] 09/14/2019 Office Visit Internal Medicine Tia Henriquez MD [address] [place] [address] [phone] Health Maintenance Due Date Last Done Comments FOOT EXAM 1962 PAP SMEAR 06/06/2010 06/06/2009 (Declined), 08/26/2006, 08/26/2006, Additional history exists MAMMOGRAM (SCREENING) 07/14/2011 07/14/2010, 04/26/2009 MEDICARE ANNUAL WELLNESS 11/22/2011 11/21/2010 VISIT Colonoscopy 07/23/2012 07/23/2009, 07/25/2006, 06/06/2006 DTaP/Tdap/Td Vaccines (2 - 12/06/2014 12/06/2004 Tdap) URINE MICROALBUMIN 09/24/2017 09/24/2016, 01/18/2015 HEMOGLOBIN A1C 03/03/2018 09/03/2017, 05/27/2017, 01/17/2017, Additional history exists DEPRESSION SCREENING 02/06/2020 02/05/2019 [...] Type Problems Progress Blood Pressure Blood Pressure 154/72 No Martinez, < 140/90 (08/27/2019 MD Tia 1:50 PM EST) Note: This is an individualized [...] to quit. Glycohemoglobin A1c < 7.0 Diabetes 6.3 (09/03/2017 12:19 PM No Tia Henriquez MD EST) Note: This is an individualized treatment (diabetes control, HgbA1C) goal for Sabine Mullins: Displayed above is your progress towards your HgbA1C goal. Your goal is shown above (on the left); your most recent HgbA1C is shown on the right. Note that lower numbers are better. Weight loss vs. 18 mo Lifestyle 0.7 (08/27/2019 1:50 PM EST) Tia Velasquez MD max (lbs) >= 10 Note: This is an individualized lifestyle goal for Sabine Mullins: Your body mass index (BMI) is more than 30. You should lose weight. A reasonable starting goal is to lose 10 pounds. Displayed above is how many pounds you have lost thus far towards your 10 pound weight loss goal. Keep immunizations current Lifestyle No Tia Henriquez MD Note: This is an individualized lifestyle [...] filedocumented in this encounter Visit Diagnoses Diagnosis Cellulitis of right lower extremity Cellulitis and abscess of leg, except foot documented in this encounter Insurance Payer Benefit Plan / Subscriber ID Effective Dates Phone Address Type Group AETNA MEDICARE AETNA MEDICARE xxxxxxxx 2019-Present [employer] ADVANTAGE ADVANTAGE Guarantor Name Account Type Relation to Date of Phone Billing Address Patient Sabine Mullins Personal/Famil 1945 [phone] [address] [phone] [place] [id number] (Work) documented as of this encounter
--- OUTSIDE RECORDS SUMMARY | 2019-09-17 12:46 | XMS REPORT ---
:1945 Author Organization [facility] Care Team Providers Name Role Phone Unavailable Unavailable Unavailable Problems Condition Condition Condition Status Onset Resolution Last Treating Comments Name Details Category Date Date Treatment Clinician Date Cellulitis Cellulitis Diagnosis Active Lynette of right of right 09-01 Wendela lower limb lower limb Allergies, Adverse Reactions, [...]
--- OUTSIDE RECORDS SUMMARY | 2019-09-17 12:46 | XMS REPORT | Continuity of Care Document ---
:1945 External Reference #:[id number] Author Name Sweetie Bonilla O.D. Address [address] [place] [address] Care Team Providers Name Role Phone Tia Henriquez M.D. - Internal Medicine Care Team Information Striper Problems Active Problems Provider Date Diabetes mellitus [...] Sex Unknown ETOH Use Denies alcohol use Recreational Drug Use Denies Drug Use Tobacco Use Start: Unknown End: Patient is a former smoker Smoking Status Reviewed: 08/21/19 Patient is a former smoker Allergies, Adverse Reactions, Alerts Active Allergies Reaction Severity Comments Date Paxil 01/13/2015 Seasonal Moderate 08/21/2019 Medications Active Medications SIG Qnty Indications Ordering Provider Date Systane 1 drop every 2 10ml Christopher Chao, 07/06/2019 0.4-0.3% Solution hours while awake M.D. starting after surgery right eye Glucose Unknown 4gm Chewtabs Trulicity Unknown 1.5mg/0.5ML Solution Pen-Inject Basaglar Kwikpen Unknown 100Unit/ML Solution Pen-Inject Ipratropium Jackhorn Unknown 0.02% Solution Gas Relief Unknown 180mg [...] Unknown 2.5mg Tablets Avapro Unknown 75mg Tablets History Medications Ciprofloxacin HCL instill one drop 5ml Christopher Chao, 07/06/2019 - 0.3% in the right eye M.D. 08/20/2019 Solution three times a day, start the day before surgery Ketorolac Tromethamine use one drop in 10ml Christopher Chao, 07/06/2019 - 0.5% the right eye M.D. 08/20/2019 Solution three times a day, start the day before surgery Prednisolone Acetate 1 drops right eye 5ml Christopher Chao, 07/06/2019 - 1% three times a day. M.D. 08/20/2019 Suspension taper as directed Immunizations Description No Information Available Vital Signs Description No Information Available Results Description No Information Available Procedures Date Code Description Status 08/05/2019 17675 Extracapsular Cataract Extraction W/Intraocular Lens Completed 07/29/2019 99159 Extracapsular Cataract Extraction W/Intraocular Lens Completed 07/06/2019 30862 Ophthalmic Biometry Completed 07/06/2019 35388 Ophthalmic Biometry Completed 07/06/2019 96389 Est Patient Intermediate Exam Completed 07/06/2019 524 C-Pap Goggles Completed 06/09/2019 32960 Scanning Computerized Opthalmic Diagnostic Posterior Seg Completed Retina 06/09/2019 56065 New Patient Comprehensive Exam Completed Medical Devices Description No Information Available Encounters Description No Information Available Assessments Date Code Description Provider 08/21/2019 Z96.1 Presence of intraocular lens Sweetie Bonilla O.D. 08/21/2019 E11.9 Type 2 diabetes mellitus without Sweetie Bonilla O.D. 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 08/06/2019 E11.9 Type 2 diabetes mellitus without Christopher Chao M.D. 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 left eye 07/30/2019 H25.812 Combined forms of age-related emmanuelle, Christopher Chao M.D. 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 complications 07/30/2019 Z96.1 Presence of intraocular lens Christopher Chao M.D. 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 right eye 07/06/2019 H25.811 Combined forms of age-related cataract, [...] Christopher Chao M.D. complications Plan of Treatment 08/21/2019 - Sweetie Bonilla O.D.Z96.1 Presence of intraocular lensComments: Your lens implant looks stable in both eyes at this time. You should be done, or almost done with your drops at this time according to your surgical calendar. I have given you a prescription for glasses. If you have any questions, please feel free to call our office at . try +3.25 reading [id number] Type 2 diabetes mellitus without [id number] Nonexudative age-related macular degeneration, left eye, early dry stageComments :Smoking can increase the risk of developing or worsening any eye related disease, as well as affect your overall health. If you are a smoker, we strongly recommend that you quit.If you are not a smoker, we strongly recommend that you do not start.Follow up:1 year oct mac Functional Status Description No Information Available Mental Status Description No Information Available Referrals Description No Information Available
--- OUTSIDE RECORDS SUMMARY | 2019-09-17 12:46 | XMS REPORT | Continuity of Care Document ---
:1945 External Reference #:[id number] Author Name Christopher Chao M.D. Address [address] [place] [address] Care Team Providers Name Role Phone Tia Henriquez M.D. - Internal Medicine Care Team Information Acute Care Assistant [phone] Problems Active Problems Provider Date Diabetes mellitus [...] Use Denies Drug Use Smoking Status Reviewed: 08/06/19 Patient is a current smoker, smokes every day Allergies, Adverse Reactions, Alerts Active Allergies Reaction Severity Comments Date Paxil 01/13/2015 Medications Active Medications SIG Qnty Indications Ordering Provider Date Ciprofloxacin HCL instill one drop 5ml Christopher Chao, 07/06/2019 0.3% in the right eye M.D. Solution three times a day, start the day before surgery Ketorolac Tromethamine use one drop in 10ml Christopher Chao 07/06/2019 0.5% the right eye M.D. Solution three times a day, start the day before surgery Prednisolone Acetate 1 drops right eye 5ml Christopher Chao, 07/06/2019 1% three times a M.D. Suspension day. taper as directed Systane 1 drop every 2 10ml Christopher Chao, 07/06/2019 0.4-0.3% Solution hours while awake M.D. starting after surgery right eye Glucose Unknown 4gm Chewtabs Trulicity Unknown 1.5mg/0.5ML Solution Pen-Inject Basaglar Kwikpen Unknown 100Unit/ML Solution Pen-Inject Ipratropium [place] Unknown 0.02% Solution Gas Relief Unknown 180mg [...] Information Available Procedures Date Code Description Status 07/29/2019 16832 Extracapsular Cataract Extraction W/Intraocular Lens Completed 07/06/2019 73783 Ophthalmic Biometry Completed 07/06/2019 93060 Ophthalmic Biometry Completed 07/06/2019 39385 Est Patient Intermediate Exam Completed 07/06/2019 524 C-Pap Goggles Completed 06/09/2019 30366 Scanning Computerized Opthalmic Diagnostic Posterior Seg Completed Retina 06/09/2019 29153 New Patient Comprehensive Exam Completed Medical Devices Description No Information Available Encounters Description No Information Available Assessments Date Code Description Provider 08/06/2019 Z96.1 Presence of intraocular lens Christopher Chao M.D. 08/06/2019 E11.9 Type 2 diabetes mellitus without Christopher Chao M.D. 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 right eye 07/06/2019 H25.811 Combined forms of age-related cataractChristopher M.D. 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 complications 07/06/2019 H25.812 Combined forms of age-related cataractChristopher M.D. left eye 07/06/2019 H35.3121 Nonexudative age-related [...] Bonilla O.D. at Christopher Chao MD, 08/06/2019 - Christopher Chao M.D.Z96.1 Presence of intraocular lensComments:Smoking can increase the risk of developing or worsening any eye related disease, as well as affect your overall health. If you are a smoker, we strongly recommend that you quit.If you are not a smoker, we strongly recommend that you do not start. The artifical lens implant in your left eye appears to be stable. Since this is the first day after surgery, your left eye is still dilated and the vision will still be slightly blurry. The dilation will go down over the next day or two. Continue taking your eye drops as directed on the surgical calendar. If you have any questions, please call our office.E11.9 Type 2 diabetes mellitus without swynqlmtpybtfC57.3121 Nonexudative age-related macular degeneration, left eye, early dry stageFollow up:1 Year Follow Up OCT MAC Functional Status Description No Information Available Mental Status Description No Information Available Referrals Description No Information Available
--- NOTE | 2019-09-17 15:16 | ED ---
Lower Extremity - HPI Summary HPI Summary: This patient is a 74-year-old female coming from assisted living presenting to the ED after a fall. Patient states she left something wet bathroom floor, her left leg slipped out from behind her and she fell down onto her left knee. Presenting to the ED with L knee pain with no pain to the hip or the ankle. Denies any pain to the L foot. Pt is endorsing 10/10 pain and requesting tylenol. Unable to ambulate. Denies any back pain. Denies hitting her head or LOC. She had help getting up without her walker nearby and ambulance was called. - History of Current Complaint Chief Complaint: EDExtremityLower Stated Complaint: FALL PER EMS Time Seen by Provider: 09/17/19 12:32 Hx Obtained From: Patient Mechanism Of Injury: Blunt Trauma Onset of Pain: Hours Onset/Duration: Hours Severity Initially: Moderate Severity Currently: Moderate Pain Intensity: 10 Pain Scale Used: 0-10 Numeric Timing: Constant Location: Is Discrete @ - left knee pain Character Of Pain: Aching Associated Signs And Symptoms: Positive: Other - abrasion. Negative: Swelling, Redness, Bruising Aggravating Factor(s): Standing, Ambulation Alleviating Factor(s): Rest Able to Bear Weight: No - Risk Factors Gout Risk Factors: Negative DVT Risk Factors: Negative Septic Arthritis Risk Factor: Negative - Allergies/Home Medications Allergies/Adverse Reactions: Allergies Allergy/AdvReac Type Severity Reaction Status Date / Time paroxetine [From Paxil] Allergy Runny Nose Verified 08/05/19 09:05 Home Medications: Home Medications Dextrose [Glucose] 4 gm PO DAILY PRN 09/17/19 [History Confirmed 09/17/19] Dulaglutide (NF) [Trulicity (NF)] 0.5 ml SUBCUT WEEKLY 09/17/19 [History Confirmed 09/17/19] Propylene Glycol/Peg 400/Pf [Systane 0.3-0.4% Eye Drops] 1 drop BOTH EYES DAILY PRN 09/17/19 [History Confirmed 09/17/19] Torsemide TAB* [Demadex*] 10 mg PO DAILY 09/17/19 [History Confirmed 09/17/19] PMH/Surg Hx/FS Hx/Imm Hx Previously Healthy: Yes Endocrine/Hematology History: Reports: Hx Diabetes - insulin dependent Cardiovascular History: Reports: Other Cardiovascular Problems/Disorders - HLD, BLE Edema Comment Only: Hx Hypertension - STATES OK OFF MEDS Respiratory History: Reports: Hx Chronic Obstructive Pulmonary Disease (COPD), Hx Pulmonary Edema, Hx Sleep Apnea - NO CPAP, Other Respiratory Problems/ Disorders - sob with exertion, SMOKED 50 YRS, QUIT 2017 Denies: Hx Asthma, Hx Pneumonia GI History: Reports: Hx Gastroesophageal Reflux Disease - ON DAILY MED, Other GI Disorders - stomach discomfort Musculoskeletal History: Reports: Hx Arthritis - OSTEO, Hx Bursitis - ARMS/ SHOULDERS ,, Other Musculoskeletal History - spinal stenosis Sensory History: Reports: Hx Cataracts - BILATERAL, Hx Contacts or Glasses - GLASSES Denies: Hx Hearing Aid Opthamlomology History: Reports: Hx Cataracts - BILATERAL, Hx Contacts or Glasses - GLASSES Psychiatric History: Reports: Hx Anxiety - ON DAILY MEDS, Hx Depression, Other Psychiatric Issues/Disorders - agoraphobia, insomnia - Cancer History Hx Chemotherapy: No Hx Radiation Therapy: No - Surgical History Surgery Procedure, Year, and Place: 1994 [place] [facility] [place]. 1960 lazy eye right as kid , AGE 16 HAD SURGERY(NO VISION) [facility] [place]. 2013 COLONOSCOPY WOKE UP DURING PROCEDURE [facility] [place] Hx Anesthesia Reactions: No - Immunization History Hx Pertussis Vaccination: No Immunizations Up to Date: Yes Infectious Disease History: No Infectious Disease History: Denies: Traveled Outside the [place] in Last 30 Days - Family History Known Family History: Positive: None, Hypertension, Diabetes - Social History Occupation: Unemployed Lives: Assisted Living Alcohol Use: None Hx Substance Use: No Substance Use Type: Reports: None Hx Tobacco Use: Yes Smoking Status (MU): Former Smoker Type: Cigarettes Amount Used/How Often: 1 1/2 ppd AT LEAST Length of Time of Smoking/Using Tobacco: 40+ years Have You Smoked in the Last Year: No Review of Systems Negative: Fever, Chills, Fatigue, Skin Diaphoresis Negative: Palpitations, Chest Pain Negative: Shortness Of Breath, Cough Positive: Arthralgia - left knee pain Positive: Other - abrasion. Negative: Rash All Other Systems Reviewed And Are Negative: Yes Physical Exam Triage Information Reviewed: Yes Vital Signs On Initial Exam: Initial Vitals Temp Pulse Resp BP Pulse Ox 97.9 F 92 20 158/90 96 09/17/19 12:35 09/17/19 12:35 09/17/19 12:35 09/17/19 12:35 09/17/19 12:35 Vital Signs Reviewed: Yes Appearance: Positive: Well-Appearing, Well-Nourished Skin: Positive: Warm, Skin Color Reflects Adequate Perfusion, Other - abrasion to the knee Head/Face: Positive: Normal Head/Face Inspection Eyes: Positive: EOMI, RIGOBERTO, Conjunctiva Clear Neck: Positive: Supple, No Lymphadenopathy Respiratory/Lung Sounds: Positive: Clear to Auscultation, Breath Sounds Present Cardiovascular: Positive: RRR, Pulses are Symmetrical in both Upper and Lower Extremities Musculoskeletal: Positive: Pain @ - left knee/abrasion noted Psychiatric: Positive: Normal, Affect/Mood Appropriate AVPU Assessment: Alert Procedures - Sedation Patient Received Moderate/Deep Sedation with Procedure: No Diagnostics - Vital Signs Vital Signs Temp Pulse Resp BP Pulse Ox 09/17/19 14:07 139/69 09/17/19 12:35 97.9 F 92 20 158/90 96 - Laboratory Lab Statement: Any lab studies that have been ordered have been reviewed, and results considered in the medical decision making process. Lower Extremity Course/Dx - Course Course Of Treatment: On physical examination, patient appears well. She is endorsing pain directly over the patella. Denies any pain to the bilateral sides of the knee, the ankle, hip or back. On palpation she is having pain directly over the patella and has no pain on palpation or movement of the left hip, ankle or foot. There is a small abrasion to the knee without surrounding erythema, bruising or swelling. X-ray obtained which shows no acute findings of fracture. Attempted to ambulate patient with good effect after Tylenol was given. Patient ambulated well to the bathroom with a walker. She is dx with knee contusion. - Diagnoses Differential Diagnosis/HQI/PQRI: Positive: Sprain, Strain Provider Diagnoses: Knee contusion Discharge ED - Sign-Out/Discharge Documenting (check all that apply): Patient Departure - Discharge Plan Condition: Stable Disposition: HOME Patient Education Materials: Contusion in Adults (ED), Knee Pain (ED) Referrals: Tia Henriquez MD [Primary Care Provider] - Additional Instructions: Tylenol for any discomfort - Billing Disposition and Condition Condition: STABLE Disposition: Home - Attestation Statements Provider Attestation: I was available for consult. This patient was seen by the [facility]. The patient was not presented to, seen by, or examined by me. Jean Pinto MD
[2019-09-17 15:34] VITALS: BP 120/78
== END 2019-09-17 15:33 | disposition home or self-care (01) ==
LOC: ED 12:31
DX: S80.02XA Contusion of left knee, initial encounter (principal); W01.0XXA Fall on same level from slipping, tripping and stumbling without subsequent striking against object, initial encounter; Y92.192 Bathroom in other specified residential institution as the place of occurrence of the external cause; E11.9 Type 2 diabetes mellitus without complications; E78.5 Hyperlipidemia, unspecified; I10 Essential (primary) hypertension; J44.9 Chronic obstructive pulmonary disease, unspecified; K21.9 Gastro-esophageal reflux disease without esophagitis; F41.9 Anxiety disorder, unspecified; F32.9 Major depressive disorder, single episode, unspecified; Z90.49 Acquired absence of other specified parts of digestive tract; Z87.891 Personal history of nicotine dependence; Z79.4 Long term (current) use of insulin; Z79.899 Other long term (current) drug therapy; Z88.8 Allergy status to other drugs, medicaments and biological substances
CPT/HCPCS: 99282; A9270-GY